=== PATIENT | female | born 1930 | race Caucasian/White ===

== ENCOUNTER 2016-06-27 | Outpatient (CLI) | payer MEDICARE, OTHER | END 2016-06-27 08:50 | disposition critical access hospital (66) | DX: R52 Pain, unspecified (principal) | CPT/HCPCS: A0425; A0429 ==

== ENCOUNTER 2016-06-27 09:09 | Emergency (ER) | payer MEDICARE, OTHER ==
[2016-06-27] MEDS ORDERED: ACETAMINOPHEN 325 MG TABLET PO STA (10:37)
[2016-06-27] MEDS ORDERED: ACETAMINOPHEN 325 MG TABLET PO ONE (10:52)
== END 2016-06-27 14:40 | disposition home or self-care (01) ==
DX: R52 Pain, unspecified (principal); R53.1 Weakness; J44.9 Chronic obstructive pulmonary disease, unspecified; J45.909 Unspecified asthma, uncomplicated; I11.0 Hypertensive heart disease with heart failure; I50.9 Heart failure, unspecified; F03.90 Unspecified dementia, unspecified severity, without behavioral disturbance, psychotic disturbance, mood disturbance, and anxiety; E11.9 Type 2 diabetes mellitus without complications; Z79.84 Long term (current) use of oral hypoglycemic drugs; Z79.82 Long term (current) use of aspirin
CPT/HCPCS: 36415; 71010; 80053; 83690; 83735; 85025; 99283; 99284; A9270

== ENCOUNTER 2017-01-21 15:50 | Outpatient (CLI) | payer MEDICARE, OTHER | END 2017-01-21 15:51 | disposition critical access hospital (66) | LOC: EMS 15:50 | PROVIDERS: ATTEND Surgery | DX: R53.1 Weakness (principal); R46.4 Slowness and poor responsiveness; R11.10 Vomiting, unspecified; R19.7 Diarrhea, unspecified | CPT/HCPCS: A0425; A0427 ==

== ENCOUNTER 2017-01-21 16:11 | Inpatient (IN) | payer MEDICARE, OTHER ==
--- NOTE | 2017-01-21 16:33 | ED Physician Documentation ---
PD HPI ALTERED MENTAL STATUS - Stated complaint Stated Complaint: WEAK - Chief complaint Chief Complaint: Neuro - History obtained from History obtained from: Family (Ada Ray by phone. Minimal history from pt d/t dementia and very PAUMA.) - History of Present Illness Timing - onset: Other (Missed meds last night. Doing okay this morning, in her normal state of health Which is very demented. She started vomiting and was incontinent of stool and complaining of weakness. 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 ANALYST: None : None HEENT: None Psych: None Musculoskeletal: None Derm: None - Present Medications Home Medications: Ambulatory Orders Medication Instructions Recorded Confirmed Alendronate [Fosamax] 70 mg PO ONCE 05/31/13 01/21/17 Aspirin [Aspir 81] 81 mg PO BID 05/31/13 01/21/17 Flaxseed Oil [Flax Seed Oil] 1,000 mg PO BID 05/31/13 01/21/17 Lisinopril 2.5 mg PO DAILY 05/31/13 01/21/17 Lovastatin [Altoprev] 20 mg PO DAILY 05/31/13 01/21/17 Sitagliptin Phosphate [Januvia] 50 mg PO DAILY 05/31/13 01/21/17 Vit D3/Folic Acid/B2/B6/B12 1 each PO DAILY 05/31/13 01/21/17 [Folgard Tablet] glipiZIDE ER [Glucotrol Xl] 2.5 mg PO 0800 05/31/13 01/21/17 Ascorbic Acid [Vitamin C] 500 mg PO DAILY 01/21/17 01/21/17 Metoprolol Succinate [Toprol Xl] 25 mg PO BID 01/21/17 01/21/17 Multivitamin [Multiple Vitamins] 1 each PO DAILY 01/21/17 01/21/17 Vitamin E (Dl,Tocopheryl Acet) 400 unit PO DAILY 01/21/17 01/21/17 [Vitamin E] - Allergies Allergies/Adverse Reactions: Allergies Allergy/AdvReac Type Severity Reaction Status Date / Time codeine Allergy Mild Anxiety Verified 05/31/13 13:39 shellfish derived Allergy Mild Anxiety Verified 05/31/13 13:39 - Living Situation Living Situation: reports: With family - Social History Does the pt smoke?: No Smoking Status: Never smoker Does the pt drink ETOH?: No Does the pt have substance abuse?: No - Immunizations Immunizations are current?: Yes - POLST Patient has POLST: No PD ED PE NORMAL - Vitals Vital signs reviewed: Yes - General General: Other (She is alert and cooperative, very hard of hearing and does not know the date or where she is.) - HEENT HEENT: PERRL, EOMI, Moist mucous membranes - Neck Neck: Supple, no meningeal sign, No bony TTP - Cardiac Cardiac: RRR, No murmur - Respiratory Respiratory: No respiratory distress, Clear bilaterally - Abdomen Abdomen: Normal bowel sounds, Soft, Other (Mild tenderness in the left lower quadrant) - Rectal Rectal: Other (Grossly blood per rectum) - Back Back: No CVA TTP, No spinal TTP - Derm Derm: Normal color, Warm and dry - Extremities Extremities: No edema, No calf tenderness / cord - Neuro Neuro: No motor deficit, No sensory deficit - Psych Psych: Normal mood, Normal affect Results - Vitals Vitals: Vital Signs - 24 hr 01/21/17 01/21/17 01/21/17 16:11 17:35 18:30 Temperature 35.6 C L Heart Rate 80 59 L 87 Respiratory 16 16 16 Rate Blood Pressure 105/46 L 131/47 H 116/74 O2 Saturation 97 97 95 01/21/17 01/21/17 19:37 19:48 Temperature 36.2 C L Heart Rate 89 84 Respiratory 16 16 Rate Blood Pressure 107/68 O2 Saturation 99 98 Oxygen O2 Source Room air - EKG (time done) 1737 Rate: Rate (enter#) (75) Rhythm: NSR (with PVCs) [place]: Normal Intervals: Normal MS Ischemia: Q waves (inferior). No: ST elevation c/w ischemia Computer interpretation: Agree with computer - Labs Labs: Laboratory Tests 01/21/17 01/21/17 01/21/17 16:46 16:53 16:53 WBC 24.8 H RBC 4.49 Hgb 12.9 Hct 39.6 MCV 88.2 MCH 28.8 MCHC 32.7 RDW 14.0 Plt Count 285 MPV 7.1 L Neut # 21.2 H Lymph # 1.9 [place] # 1.5 H Eos # 0.1 Baso # 0.1 Absolute Nucleated RBC 0.00 Nucleated RBCs 0.0 Manual Slide Review Indicated WBC Morphology NORMAL APPEARANCE Platelet Estimate NORMAL (130-450,000) Platelet Morphology NORMAL APPEARANCE RBC Morph Micro Appear 1+ OVALOCYTES PT 12.3 INR 1.1 Sodium Potassium Chloride Carbon Dioxide Anion Gap BUN Creatinine Estimated GFR (MDRD) Glucose Lactic Acid Calcium Total Bilirubin AST ALT Alkaline Phosphatase Total Creatine Kinase CK-MB (CK-2) Troponin I Total Protein Albumin Globulin Albumin/Globulin Ratio Lipase Urine Color YELLOW Urine Clarity HAZY Urine pH 7.5 Ur Specific [place] 1.010 Urine Protein 30 H Urine Glucose (UA) NEGATIVE Urine Ketones NEGATIVE Urine Occult Blood TRACE-LYSE Urine Nitrite NEGATIVE Urine Bilirubin NEGATIVE Urine Urobilinogen 0.2 (NORMAL) Ur Leukocyte Esterase SMALL H Urine RBC 0-5 Urine WBC >25 H Urine WBC Clumps PRESENT Ur Epithelial Cells See Comments Below Ur Squamous Epith Cells MOD Squamous H Urine Bacteria Many H Ur Microscopic Review INDICATED Urine Culture Comments NOT INDICATED Blood Type Blood Type Recheck Antibody Screen Crossmatch IS Only 01/21/17 01/21/17 01/21/17 16:53 16:53 16:53 WBC RBC Hgb Hct MCV MCH MCHC RDW Plt Count MPV Neut # Lymph # [place] # Eos # Baso # Absolute Nucleated RBC Nucleated RBCs Manual Slide Review WBC Morphology Platelet Estimate Platelet Morphology RBC Morph Micro Appear PT INR Sodium 129 L Potassium 3.4 L Chloride 95 L Carbon Dioxide 23 Anion Gap 11.0 BUN 18 Creatinine 0.9 Estimated GFR (MDRD) 60 L Glucose 201 H Lactic Acid 2.6 H Calcium 9.1 Total Bilirubin 0.9 AST 27 ALT 17 Alkaline Phosphatase 100 Total Creatine Kinase 67 CK-MB (CK-2) 1.7 Troponin I < 0.04 Total Protein 6.4 L Albumin 3.7 Globulin 2.7 Albumin/Globulin Ratio 1.4 Lipase 25 Urine Color Urine Clarity Urine pH Ur Specific [place] Urine Protein Urine Glucose (UA) Urine Ketones Urine Occult Blood Urine Nitrite Urine Bilirubin Urine Urobilinogen Ur Leukocyte Esterase Urine RBC Urine WBC Urine WBC Clumps Ur Epithelial Cells Ur Squamous Epith Cells Urine Bacteria Ur Microscopic Review Urine Culture Comments Blood Type Blood Type Recheck Antibody Screen Crossmatch IS Only 01/21/17 01/21/17 16:53 17:13 WBC RBC Hgb Hct MCV MCH MCHC RDW Plt Count MPV Neut # Lymph # [place] # Eos # Baso # Absolute Nucleated RBC Nucleated RBCs Manual Slide Review WBC Morphology Platelet Estimate Platelet Morphology RBC Morph Micro Appear PT INR Sodium Potassium Chloride Carbon Dioxide Anion Gap BUN Creatinine Estimated GFR (MDRD) Glucose Lactic Acid Calcium Total Bilirubin AST ALT Alkaline Phosphatase Total Creatine Kinase CK-MB (CK-2) Troponin I Total Protein Albumin Globulin Albumin/Globulin Ratio Lipase Urine Color Urine Clarity Urine pH Ur Specific [place] Urine Protein Urine Glucose (UA) Urine Ketones Urine Occult Blood Urine Nitrite Urine Bilirubin Urine Urobilinogen Ur Leukocyte Esterase Urine RBC Urine WBC Urine WBC Clumps Ur Epithelial Cells Ur Squamous Epith Cells Urine Bacteria Ur Microscopic Review Urine Culture Comments Blood Type A POSITIVE Blood Type Recheck A POSITIVE Antibody Screen NEGATIVE Crossmatch IS Only See Detail - Rads (name of study) CT A/P Radiology: EMP read contemporaneously (Diffuse descending colitis) PD MEDICAL DECISION MAKING - ED course ED course: This is a fairly demented edema 86-year-old woman who presents with left lower quadrant tenderness and lower GI bleeding. Her H&H is good but she does have a significant leukocytosis and evidence of UTI on catheterized sample. CT to my eye shows significant diverticulitis and she is administered Zosyn and Flagyl and I called the hospitalist for admission at 7:15 PM. Departure - Departure Disposition: 66 [facility] DC/Xfer Clinical Impression: Lower GI bleeding, Colitis Urinary tract infection Qualifiers: Urinary tract infection type: site unspecified Hematuria presence: without hematuria Qualified Code(s): N39.0 - Urinary tract infection, site not specified Condition: Serious
[2017-01-21] MEDS ORDERED: SODIUM CHLORIDE 0.9% 1,000 ML IV ONE (16:36)
[2017-01-21 17:07] LABS: BASOPHILS # (AUTO) 0.1 10^3/uL (0.0-0.1); BASOPHILS % (AUTO) 0.4 %; EOSINOPHILS # (AUTO) 0.1 10^3/uL (0.0-0.7); EOSINOPHILS % (AUTO) 0.3 %; HCT - HEMATOCRIT 39.6 % (37.0-47.0); HGB - HEMOGLOBIN 12.9 g/dL (12.0-16.0); LYMPHOCYTES # (AUTO) 1.9 10^3/uL (1.5-3.5); LYMPHOCYTES % (AUTO) 7.6 %; MEAN CORPUSCULAR HEMOGLOBIN 28.8 pg (27.0-31.0); MEAN CORPUSCULAR HGB CONC 32.7 g/dL (32.0-36.0); MEAN CORPUSCULAR VOLUME 88.2 fL (81.0-99.0); MEAN PLATELET VOLUME 7.1 fL (7.9-10.8); MONOCYTES # (AUTO) 1.5 10^3/uL (0.0-1.0); MONOCYTES % (AUTO) 6.2 %; NEUTROPHILS # (AUTO) 21.2 10^3/uL (1.5-6.6); NEUTROPHILS % (AUTO) 85.5 %; RED BLOOD COUNT 4.49 10^6/uL (4.20-5.40); UNCORRECTED WHITE BLOOD COUNT 24.8 x10^3/uL; WHITE BLOOD COUNT 24.8 x10^3/uL (4.8-10.8)
[2017-01-21 17:12] LABS: BILIRUBIN,URINE NEGATIVE (NEGATIVE); PH,URINE 7.5 PH (5.0-7.5)
[2017-01-21 17:13] LABS: UA w/ MICROSCOPIC CHARGE YES
[2017-01-21 17:17] LABS: ALBUMIN/GLOBULIN RATIO 1.4 (1.0-2.2); BILIRUBIN,TOTAL 0.9 mg/dL (0.2-1.0); CALCIUM 9.1 mg/dL (8.5-10.3); CREATININE 0.9 mg/dL (0.4-1.0); POTASSIUM 3.4 mmol/L (3.5-5.0); TOTAL PROTEIN 6.4 g/dL (6.7-8.2)
[2017-01-21 17:20] LABS: WBC,URINE >25 /HPF (0-5)
[2017-01-21 17:21] LABS: UR CULTURE IF IND NOT INDICATED
[2017-01-21 17:26] LABS: CREATINE KINASE MB 1.7 ng/mL (0.6-6.3)
[2017-01-21 17:28] LABS: INR 1.1 (0.8-1.2); PT - PROTHROMBIN TIME 12.3 secs (9.9-12.6)
[2017-01-21 17:31] LABS: TROPONIN I < 0.04 ng/mL (<0.49)
[2017-01-21] MEDS ORDERED: IOPAMIDOL-300 100 ML VIAL ONE (17:33)
[2017-01-21 18:11] LABS: PLATELET ESTIMATE, MANUAL NORMAL (130-450,000) (NORMAL); PLATELET MORPHOLOGY NORMAL APPEARANCE (NORMAL)
[2017-01-21 18:14] LABS: WBC MORPHOLOGY (MULTIPLE) NORMAL APPEARANCE (NORMAL)
[2017-01-21] MEDS ORDERED: IOPAMIDOL-300 100 ML VIAL IVP ONE (19:03)
[2017-01-21] MEDS ORDERED: PIPERACILLIN/TAZOBACTAM 3.375 GM in SODIUM CHLORIDE 0.9% MINIBAG 100 ML IV STA (19:14)
[2017-01-21] MEDS ORDERED: metroNIDAZOLE 500 MG/100 ML 100 ML IV ONE (19:14)
[2017-01-21] MEDS ORDERED: metroNIDAZOLE 500 MG/100 ML 100 ML ONE (19:26)
--- NOTE | 2017-01-21 19:42 | CT Preliminary Report ---
Exam: CT Abdomen/Pelvis W/ IMPRESSION: 1. No bowel obstruction. Fairly diffuse colonic thickening is present with mild pericolonic inflammat ory changes from the approximate mid transverse colon to the rectum, most consistent with a diffuse c olitis. No free air or abscess identified. [facility] SITE ID: [id number]
--- NOTE | 2017-01-21 19:44 | CT Report ---
EXAM: CT ABDOMEN AND PELVIS EXAM DATE: 01/21/2017 07:08 PM. CLINICAL HISTORY: IV only, LLQ tenderness, wait for labs. COMPARISONS: 05/31/2013. TECHNIQUE: Routine helical CT imaging was performed through the abdomen and pelvis. IV contrast: 100 mL Isovue 300. Enteric contrast: No. Reconstructions: Coronal and sagittal. In accordance with CT protocol optimization, one or more of the following dose reduction techniques w ere utilized for this exam: automated exposure control, adjustment of mA and/or KV based on patient s ize, or use of iterative reconstructive technique. FINDINGS: Lung Bases: Small amount of probable atelectasis and respiratory motion. Liver: Homogeneous without focal mass. Gallbladder/Bile Ducts: Unremarkable. Spleen: Unremarkable. Pancreas: Mild atrophic and a few small calcifications again noted. Adrenal Glands: Stable. Kidneys: Stable horseshoe appearance. A few small probable calcifications appear to remain present wi th some limitation in assessment secondary to contrast. Enhancement appears appropriate. No hydroneph rosis. Peritoneal Cavity/Bowel: No bowel obstruction. Inflammatory changes with thickening are present from the approximate mid transverse colon to the rectum. Colonic diverticula are also noted. No free air. No discrete collection. No bulky adenopathy. Pelvic Organs: Urinary bladder contains no calcifications within it and no definite thickening. Uteru s appears surgically absent. Vasculature: No aneurysmal dilation. Small amount of vascular calcification. Bones: Degenerative change of the hips and spine again noted. Other: None. IMPRESSION: 1. No bowel obstruction. Fairly diffuse colonic thickening is present with mild pericolonic inflammat ory changes from the approximate mid transverse colon to the rectum, most consistent with a diffuse c olitis. No free air or abscess identified. [facility] Referring Provider Line: [phone] SITE ID: [id number]
[2017-01-21] MEDS ORDERED: ACETAMINOPHEN 325 MG TABLET PO PRN (19:57)
[2017-01-21] MEDS ORDERED: oxyCODONE 5 MG TABLET PO PRN ×2 (19:57)
[2017-01-21] MEDS ORDERED: SODIUM CHLORIDE FLUSH 0.9% 10 ML SYRINGE IVP PRN (19:57)
[2017-01-21] MEDS ORDERED: PROCHLORPERAZINE 10 MG/2 ML VIAL IVP PRN (19:57)
[2017-01-21] MEDS ORDERED: MORPHINE 2 MG/ML SYRINGE IVP PRN (19:57)
[2017-01-21] MEDS ORDERED: ONDANSETRON 4 MG/2 ML VIAL IVP PRN (19:57)
[2017-01-21] MEDS: NS W/20 MEQ KCL 1,000 ML IV SCH (21:49)
[2017-01-21] MEDS: INSULIN ASPART 300 UNIT/3 ML PEN SUBQ SCH (21:49)
[2017-01-21] MEDS: SODIUM CHLORIDE FLUSH 0.9% 10 ML SYRINGE IVP SCH (21:50)
[2017-01-21] MEDS ORDERED: HALOPERIDOL 5 MG/ML VIAL IM PRN (21:59)
--- NOTE | 2017-01-21 22:37 | HISTORY & PHYSICAL EXAMINATION ---
Chief Complaint - Chief Complaint Chief Complaint: Low blood pressure History of Present Illness - Admitted From Admitted From:: Emergency department - History Obtained From Records Reviewed: Yes History obtained from: Patient's daughter and medical records Exam Limitations: Patient has dementia and is hard of hearing it is very difficult to get any - History of Present Illness HPI Comment/Other: Patient is an 86-year-old female with a past medical history significant for hypertension, hyperlipidemia, diabetes, CHF, osteoporosis, osteoarthritis and dementia who presents to the emergency department secondary to having a low blood pressure. The patient is unable to provide any history secondary to her dementia the history is provided by the patient's daughter. The patient's daughter states that for the last several days the patient has been increasingly agitated at home. However the patient has been eating and drinking normally until this evening. The patient's daughter states that the patient was with the caregiver this evening and the caregiver called the patient 's daughter because patient was vomiting. According to the patient's daughter the patient also looked very pale therefore they called 911. The caregiver also noted that the patient was clenching her abdomen and seemed to be in abdominal pain. When EMS arrived at the patient's home the patient was found to be hypotensive with a systolic blood pressure in the 60s. They then proceeded to bring the patient into the emergency department. The patient was not febrile or tachycardic at that time. The patient was unable to provide any further review of systems secondary to her dementia. The patient's daughter stated that she had not noticed the patient having any significant complaints over the last couple of days other than she noticed that the patient had been more agitated than normal the last few days. She also stated that the patient was not as active as normal. Otherwise the patient had not been having any fevers, complaining of any chest pain, shortness of air, or abdominal pain before today. The patient had also not had any increased urinary frequency or changes in her neurologic status. On presentation to the emergency department the patient was afebrile and blood pressure had improved and she was given fluid in the ambulance and it was up to 105/46 otherwise her vital signs were stable. The patient did have several bowel movements in the emergency department and they appear to be loose with bloody stools. The patient did appear to be favoring her left lower quadrant of her abdomen and it was tender on examination. The patient's lab work revealed a leukocytosis of 24.8 with a lactic acid of 2.6. The patient's labs also revealed a low sodium and low potassium consistent with dehydration. The patient's UA was positive with greater than 25 WBCs and many bacteria. The patient was sent for a CT scan of her abdomen and pelvis which revealed no bowel obstruction but fairly diffuse colonic thickening with mild pericolonic inflammatory changes from the mid transverse colon to the rectum which were consistent with diffuse colitis. The patient was admitted to the hospital with colitis and urinary tract infection. 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 She has required 24 7 supervision for the last couple of years. This is due to increasing dementia and decreased mobility as the patient is now mainly wheelchair-bound and requires assistance with transfer. The patient is originally from [facility] but her and her moved throughout the country as her was in the . She is now from her who lives in [place], [place]. The patient has been living in [facility] since the and currently lives in [place]. The patient did smoke for a couple years and her younger days but has not smoked for a long time and was never a heavy smoker. Patient also occasionally drank but never heavily and currently does not drink. She denies any illicit drug use. - Substance History Use: Uses substance without health or social issues: NONE Abuse: Recurrent use of substance despite neg consequences: NONE Dependence: Experiences withdrawal or developed tolerances: NONE - POLST Patient has POLST: Yes POLST Status: Limited Interventions (DNR) Meds/Allgy - Home Medications Home Medications: Ambulatory Orders Medication Instructions Recorded Confirmed Alendronate [Fosamax] 70 mg PO 05/31/13 05/31/13 Aspirin [Aspir 81] 81 mg PO BID 05/31/13 01/21/17 Lisinopril 2.5 mg PO DAILY 05/31/13 01/21/17 Lovastatin [Altoprev] 20 mg PO DAILY 05/31/13 01/21/17 Sitagliptin Phosphate [Januvia] 50 mg PO DAILY 05/31/13 01/21/17 Vit D3/Folic Acid/B2/B6/B12 1 each PO DAILY 05/31/13 01/21/17 [Folgard Tablet] glipiZIDE ER [Glucotrol Xl] 2.5 mg PO 1200 05/31/13 01/21/17 Ascorbic Acid [Vitamin C] 500 mg PO DAILY 01/21/17 01/21/17 Metoprolol Succinate [Toprol Xl] 25 mg PO BID 01/21/17 01/21/17 Vitamin E (Dl,Tocopheryl Acet) 400 unit PO DAILY 01/21/17 01/21/17 [Vitamin E] - Allergies Allergies/Adverse Reactions: Allergies Allergy/AdvReac Type Severity Reaction Status Date / Time codeine Allergy Mild Anxiety Verified 05/31/13 13:39 shellfish derived Allergy Mild Anxiety Verified 05/31/13 13:39 Review of Systems - Other Findings Other Findings: Unable to obtain a reliable review of systems secondary to patient's dementia attempt was made to get history from the patient's daughter and that is all stated above in the HPI. Exam - Vital Signs Reviewed Vital Signs: Yes Vital Signs: Vital Signs x48h Pulse Resp BP Pulse Ox 01/21/17 20:37 90 16 107/79 98 - Physical Exam General Appearance: positive: Mild distress (agitated, abdominal discomfort), Other (Hard of hearing with dementia) Eyes Bilateral: positive: Normal inspection, PERRL, EOMI, No lid inflammation, Conjunctivae nml, No scleral icterus ENT: positive: ENT inspection nml, Pharynx nml, Dry mucous membranes. negative : Purulent nasal drainage, Pharyngeal erythema, Oral lesions Neck: positive: Nml inspection, Thyroid nml, No JVD. negative: Trachea midline , Thyromegaly, Lymphadenopathy (R), Lymphadenopathy (L), Stiff neck, Carotid bruit, Tracheal deviation Respiratory: positive: Chest non-tender, No respiratory distress, Breath sounds nml. negative: Wheezes, Rales, Rhonchi Cardiovascular: positive: Regular rate & rhythm, No murmur, No gallop Peripheral Pulses: positive: 2+ Abdomen: positive: No organomegaly, No distention, Tenderness (Diffusely tender but worse in the left lower quadrant), Guarding, Abnml bowel sounds (Hyperactive ). negative: Rebound, Hepatomegaly Back: positive: Nml inspection. negative: CVA tenderness (R), CVA tenderness (L ) Skin: positive: Color nml, No rash, Pallor. negative: Cyanosis Extremities: positive: Non-tender, Full ROM, Nml appearance, No pedal edema. negative: Joint swelling Neurologic/Psychiatric: positive: Motor nml, Sensation nml, Disoriented to place , Disoriented to time, Other (Hard of hearing and demented, poor memory, does not know why she is here) Conclusion/Plan - Problem List (1) Colitis Conclusion/Plan: Patient presented with hypotension, abdominal pain and agitation. She is found to have a leukocytosis of 24,000 on presentation. She also had an elevated lactic acid and her abdominal CT showed diffuse colitis from the transverse colon down to the rectum. The patient had several bloody bowel movements in the emergency department but did not appear to have severe abdominal pain. She was quite tender on examination. Patient likely has an infectious colitis given her leukocytosis, tenderness on exam and bloody diarrhea. It is very unlikely that the patient has ischemic colitis although given her age and risk factors this is a possibility. However the patient does not appear to have pain out of proportion to her examination. This is very unlikely to be a inflammatory bowel disease given the patient's age. Plan: We will start the patient on IV antibiotics with ciprofloxacin and Flagyl We will check patient's stool cultures and will check for C. difficile PCR Patient will be given IV fluids We will monitor her H&H given that she is having some blood in her stool Patient will be given medication for pain control and antiemetics. (2) Urinary tract infection Conclusion/Plan: The patient presented with hypotension, leukocytosis and agitation at home. The patient was found to have a UA with her than 25 WBCs positive leukocyte esterase and many bacteria however there was also squamous cells so this may not be the best sample. Plan: The patient will be treated for urinary tract infection given her presentation therefore she will be placed on IV ciprofloxacin. We will repeat a urine analysis to ensure that the patient truly has a UTI and so that the urine can be sent for culture. We will follow up on urine cultures Qualifiers: Urinary tract infection type: site unspecified Hematuria presence: without hematuria Qualified Code(s): N39.0 - Urinary tract infection, site not specified (3) Hyponatremia Conclusion/Plan: Patient presented with hyponatremia the patient's sodium was 129 on presentation. The patient appeared to be hypovolemic and likely has hypovolemic hyponatremia secondary to dehydration from her infection. Plan: Patient will be given IV fluids We will monitor her sodium (4) Hypokalemia Conclusion/Plan: The patient's potassium was 3.4 on presentation this is likely secondary to the patient having vomiting at home and being dehydrated from her infection. We will replace the patient's potassium We will continue to monitor potassium. (5) Hypertension Conclusion/Plan: The patient was hypotensive on presentation and was borderline septic with her colitis. We will hold the patient's antihypertensive medications until patient's blood pressure is improved. Patient will be given IV fluids Qualifiers: Hypertension type: essential hypertension Qualified Code(s): I10 - Essential (primary) hypertension (6) Diabetes Conclusion/Plan: Patient has a history of type 2 diabetes and is on oral medications at home. The patient's blood sugar on presentation was elevated at 201. Patient's blood sugars are likely elevated secondary to ongoing infection. Plan: We will check hemoglobin A1c Patient will be placed on diabetic diet Patient will be placed on sliding scale insulin We will monitor patient's blood glucose before meals at bedtime Qualifiers: Diabetes mellitus type: type 2 (7) CHF (congestive heart failure) Conclusion/Plan: Patient has CHF listed in her diagnoses and is on optimal treatment at home with metoprolol and lisinopril. I would assume the patient has systolic heart failure although we do not have an echocardiogram. Plan: We will need to be careful with hydration although given the patient was hypotensive on presentation and is having diarrhea with colitis we will likely need to continue hydration. Patient's lisinopril and metoprolol will be held for hypotension. We will get an echocardiogram to evaluate the patient's heart function to better guide our treatment. (8) DVT prophylaxis Conclusion/Plan: Given that the patient is having bloody stools we will hold off on giving patient Lovenox for DVT prophylaxis if for the time being she will placed on SCDs - Lab Results Lab results reviewed: Yes Fish Bones: 01/21/17 16:53 01/21/17 16:53 Other Lab Results: Laboratory Results WBC 24.8 x10^3/uL (4.8-10.8) H 01/21/17 16:53 RBC 4.49 10^6/uL (4.20-5.40) 01/21/17 16:53 Hgb 12.9 g/dL (12.0-16.0) 01/21/17 16:53 Hct 39.6 % (37.0-47.0) 01/21/17 16:53 MCV 88.2 fL (81.0-99.0) 01/21/17 16:53 MCH 28.8 pg (27.0-31.0) 01/21/17 16:53 MCHC 32.7 g/dL (32.0-36.0) 01/21/17 16:53 RDW 14.0 % (12.0-15.0) 01/21/17 16:53 Plt Count 285 10^3/uL (130-450) 01/21/17 16:53 MPV 7.1 fL (7.9-10.8) L 01/21/17 16:53 Neut # 21.2 10^3/uL (1.5-6.6) H 01/21/17 16:53 Lymph # 1.9 10^3/uL (1.5-3.5) 01/21/17 16:53 Andrews # 1.5 10^3/uL (0.0-1.0) H 01/21/17 16:53 Eos # 0.1 10^3/uL (0.0-0.7) 01/21/17 16:53 Baso # 0.1 10^3/uL (0.0-0.1) 01/21/17 16:53 Absolute Nucleated RBC 0.00 x10^3/uL 01/21/17 16:53 Nucleated RBCs 0.0 /100WBC 01/21/17 16:53 Manual Slide Review Indicated 01/21/17 16:53 WBC Morphology NORMAL APPEARANCE (NORMAL) 01/21/17 16:53 Platelet Estimate NORMAL (130-450,000) (NORMAL) 01/21/17 16:53 Platelet Morphology NORMAL APPEARANCE (NORMAL) 01/21/17 16:53 RBC Morph Micro Appear 2+ ANISOCYTOSIS (NORMAL) 2+ POIKILOCYTOSIS (NORMAL) 2 + ACANTHOCYTES (NORMAL) 1+ OVALOCYTES (NORMAL) 01/21/17 16:53 RBC Morph Micro Appear 2+ ANISOCYTOSIS (NORMAL) 2+ POIKILOCYTOSIS (NORMAL) 2 + ACANTHOCYTES (NORMAL) 1+ OVALOCYTES (NORMAL) 01/21/17 16:53 RBC Morph Micro Appear 2+ ANISOCYTOSIS (NORMAL) 2+ POIKILOCYTOSIS (NORMAL) 2 + ACANTHOCYTES (NORMAL) 1+ OVALOCYTES (NORMAL) 01/21/17 16:53 RBC Morph Micro Appear 2+ ANISOCYTOSIS (NORMAL) 2+ POIKILOCYTOSIS (NORMAL) 2 + ACANTHOCYTES (NORMAL) 1+ OVALOCYTES (NORMAL) 01/21/17 16:53 PT 12.3 secs (9.9-12.6) 01/21/17 16:53 INR 1.1 (0.8-1.2) 01/21/17 16:53 Sodium 129 mmol/L (135-145) L 01/21/17 16:53 Potassium 3.4 mmol/L (3.5-5.0) L 01/21/17 16:53 Chloride 95 mmol/L (101-111) L 01/21/17 16:53 Carbon Dioxide 23 mmol/L (21-32) 01/21/17 16:53 Anion Gap 11.0 (6-13) 01/21/17 16:53 BUN 18 mg/dL (6-20) 01/21/17 16:53 Creatinine 0.9 mg/dL (0.4-1.0) 01/21/17 16:53 Estimated GFR (MDRD) 60 (>89) L 01/21/17 16:53 Glucose 201 mg/dL (70-100) H 01/21/17 16:53 Lactic Acid 2.6 mmol/L (0.5-2.2) H 01/21/17 16:53 Calcium 9.1 mg/dL (8.5-10.3) 01/21/17 16:53 Total Bilirubin 0.9 mg/dL (0.2-1.0) 01/21/17 16:53 AST 27 IU/L (10-42) 01/21/17 16:53 ALT 17 IU/L (10-60) 01/21/17 16:53 Alkaline Phosphatase 100 IU/L (42-121) 01/21/17 16:53 Total Creatine Kinase 67 IU/L (22-269) 01/21/17 16:53 CK-MB (CK-2) 1.7 ng/mL (0.6-6.3) 01/21/17 16:53 Troponin I < 0.04 ng/mL (<0.49) 01/21/17 16:53 Total Protein 6.4 g/dL (6.7-8.2) L 01/21/17 16:53 Albumin 3.7 g/dL (3.2-5.5) 01/21/17 16:53 Globulin 2.7 g/dL (2.1-4.2) 01/21/17 16:53 Albumin/Globulin Ratio 1.4 (1.0-2.2) 01/21/17 16:53 Lipase 25 U/L (22-51) 01/21/17 16:53 Urine Color YELLOW 01/21/17 16:46 Urine Clarity HAZY (CLEAR) 01/21/17 16:46 Urine pH 7.5 PH (5.0-7.5) 01/21/17 16:46 Ur Specific [place] 1.010 (1.002-1.030) 01/21/17 16:46 Urine Protein 30 mg/dL (NEGATIVE) H 01/21/17 16:46 Urine Glucose (UA) NEGATIVE mg/dL (NEGATIVE) 01/21/17 16:46 Urine Ketones NEGATIVE mg/dL (NEGATIVE) 01/21/17 16:46 Urine Occult Blood TRACE-LYSE (NEGATIVE) 01/21/17 16:46 Urine Nitrite NEGATIVE (NEGATIVE) 01/21/17 16:46 Urine Bilirubin NEGATIVE (NEGATIVE) 01/21/17 16:46 Urine Urobilinogen 0.2 (NORMAL) E.U./dL (NORMAL) 01/21/17 16:46 Ur Leukocyte Esterase SMALL (NEGATIVE) H 01/21/17 16:46 Urine RBC 0-5 /HPF (0-5) 01/21/17 16:46 Urine WBC >25 /HPF (0-5) H 01/21/17 16:46 Urine WBC Clumps PRESENT 01/21/17 16:46 Ur Epithelial Cells FEW Transitional /HPF (<= Few) See Comments Below /HPF (<= Few) 01/21/17 16:46 Ur Epithelial Cells FEW Transitional /HPF (<= Few) See Comments Below /HPF (<= Few) 01/21/17 16:46 Ur Squamous Epith Cells MOD Squamous (<= Few) H 01/21/17 16:46 Urine Bacteria Many /HPF (None Seen) H 01/21/17 16:46 Ur Microscopic Review INDICATED 01/21/17 16:46 Urine Culture Comments NOT INDICATED 01/21/17 16:46 Blood Type A POSITIVE 01/21/17 17:13 Blood Type Recheck A POSITIVE 01/21/17 16:53 Antibody Screen NEGATIVE 01/21/17 17:13 Crossmatch IS Only See Detail 01/21/17 17:13 - Diagnostic Imaging Results Diagnostic Imaging Results: positive: Final report reviewed Diagnostic Imaging Results Comments: CT abdomen/pelvis Impression: 1. No bowel obstruction. Fairly diffuse colonic thickening is present with mild pericolonic inflammatory changes from the approximate mid transverse colon to the rectum, most consistent with a diffuse colitis. No free air or abscess identified. Issues/Core Measures - Anticipated LOS Anticipated Stay Length: 2 or more midnights - DVT/VTE - Prophylaxis VTE/DVT Device ordered at admit?: Yes
[2017-01-21] MEDS: CIPROFLOXACIN 400 MG/200 ML 200 ML IV SCH (22:50)
[2017-01-21] MEDS ORDERED: ZINC OXIDE 20% OINT 28.35 GM TUBE TOP PRN (23:36)
[2017-01-22] MEDS: metroNIDAZOLE 500 MG/100 ML 100 ML IV SCH ×3 (02:30→14:21)
[2017-01-22] MEDS: SODIUM CHLORIDE FLUSH 0.9% 10 ML SYRINGE IVP SCH ×2 (05:53→14:21)
[2017-01-22] MEDS: NS W/20 MEQ KCL 1,000 ML IV SCH ×3 (05:58→22:54)
[2017-01-22 06:44] LABS: BASOPHILS % (AUTO) 0.1 %; HCT - HEMATOCRIT 38.7 % (37.0-47.0); HGB - HEMOGLOBIN 13.1 g/dL (12.0-16.0); LYMPHOCYTES # (AUTO) 0.4 10^3/uL (1.5-3.5); LYMPHOCYTES % (AUTO) 2.1 %; MEAN CORPUSCULAR HEMOGLOBIN 29.9 pg (27.0-31.0); MEAN CORPUSCULAR HGB CONC 33.7 g/dL (32.0-36.0); MEAN CORPUSCULAR VOLUME 88.8 fL (81.0-99.0); MEAN PLATELET VOLUME 7.3 fL (7.9-10.8); MONOCYTES # (AUTO) 0.9 10^3/uL (0.0-1.0); MONOCYTES % (AUTO) 5.4 %; NEUTROPHILS # (AUTO) 15.7 10^3/uL (1.5-6.6); NEUTROPHILS % (AUTO) 92.4 %; RED BLOOD COUNT 4.36 10^6/uL (4.20-5.40); RED CELL DISTRIBUTION WIDTH 14.2 % (12.0-15.0)
[2017-01-22 06:58] LABS: ALBUMIN/GLOBULIN RATIO 1.1 (1.0-2.2); BILIRUBIN,TOTAL 0.6 mg/dL (0.2-1.0); CALCIUM 8.2 mg/dL (8.5-10.3); MAGNESIUM 1.2 mg/dL (1.7-2.8); PHOSPHORUS 3.3 mg/dL (2.5-4.6); POTASSIUM 4.2 mmol/L (3.5-5.0); TOTAL PROTEIN 5.6 g/dL (6.7-8.2)
[2017-01-22] MEDS: CIPROFLOXACIN 400 MG/200 ML 200 ML IV SCH (07:53)
[2017-01-22 07:58] LABS: INR 1.1 (0.8-1.2); PT - PROTHROMBIN TIME 12.8 secs (9.9-12.6)
[2017-01-22] MEDS: INSULIN ASPART 300 UNIT/3 ML PEN SUBQ SCH ×3 (07:58→16:39)
[2017-01-22 08:21] LABS: HEMOGLOBIN A1C 0.51 g/dL
[2017-01-22] MEDS ORDERED: MAGNESIUM SULFATE 2 GM in SODIUM CHLORIDE 0.9% 50 ML IV ONE (08:47)
[2017-01-22] MEDS ORDERED: LOVASTATIN 20 MG PO SCH (09:00)
[2017-01-22] MEDS: FAMOTIDINE 20 MG TABLET PO SCH (09:09)
[2017-01-22] MEDS: MULTIVITAMIN TABLET PO SCH (09:10)
[2017-01-22] MEDS: POLYETHYLENE GLYCOL 3350 17 GM PACKET PO SCH (09:10)
[2017-01-22] MEDS ORDERED: MAGNESIUM SULFATE 2 GRAM 2 GM/50 ML BAG IV ONE (10:00)
--- NOTE | 2017-01-22 13:49 | PROVIDER PROGRESS NOTE ---
Subjective - Prog Note Date Prog Note Date: 01/22/17 - Subjective Pt reports feeling: No change Subjective: pt is still confused, at her baseline per nurse report Current Medications - Current Medications Current Medications: Active Medications Acetaminophen (Tylenol) 650 mg PO Q4HR PRN PRN Reason: Pain 1 to 4 Atorvastatin Calcium (Lipitor) 10 mg PO QPM [facility] Famotidine (Pepcid) 20 mg PO DAILY [facility] Last Admin: 01/22/17 09:09 Dose: Not Given Haloperidol (Haldol Inj) 2.5 mg IM Q8H PRN PRN Reason: Agitation Potassium Chloride/Sodium Chloride (Normal Saline 0.9% W/20 Meq Kcl) 1,000 mls @ 100 mls/hr IV .Q10H [facility] Last Admin: 01/22/17 12:03 Dose: 100 mls/hr Ciprofloxacin (Cipro 400 Mg/200 Ml) 200 mls @ 200 mls/hr IV Q12H [facility] Last Admin: 01/22/17 07:53 Dose: 200 mls/hr Metronidazole (Flagyl 500 Mg/100 Ml) 100 mls @ 100 mls/hr IV Q6H [facility] Last Infusion: 01/22/17 15:19 Dose: Infused Insulin Aspart (Novolog) 1 - 5 unit SUBQ 0800,1200,1700,2100 [facility] PRN Reason: Protocol Last Admin: 01/22/17 16:39 Dose: 2 unit Morphine Sulfate (Morphine) 2 mg IVP Q2H PRN PRN Reason: Pain 8 to 10 Multi-Ingredient Ointment (Zinc Oxide) 0 applic TOP PRN PRN PRN Reason: Skin Care Multivitamins (Theragran) 1 tab PO DAILY [facility] Last Admin: 01/22/17 09:10 Dose: Not Given Ondansetron HCl (Zofran Inj) 4 mg IVP Q6HR PRN PRN Reason: Nausea / Vomiting Oxycodone HCl (Roxicodone) 5 mg PO Q4HR PRN PRN Reason: Pain 5 to 7 Oxycodone HCl (Roxicodone) 10 mg PO Q4HR PRN PRN Reason: Pain 8 to 10 Polyethylene Glycol (Miralax) 17 gm PO DAILY [facility] Last Admin: 01/22/17 09:10 Dose: Not Given Prochlorperazine Edisylate (Compazine Inj) 10 mg IVP Q6HR PRN PRN Reason: Nausea / Vomiting Sodium Chloride (Normal Saline Flush 0.9%) 10 ml IVP PRN PRN PRN Reason: NEEDED PER PROVIDER ORDERS Sodium Chloride (Normal Saline Flush 0.9%) 10 ml IVP Q8HR [facility] Last Admin: 01/22/17 14:21 Dose: Not Given Alendronate [Fosamax] 70 mg PO UD 05/31/13 Aspirin [Aspir 81] 81 mg PO BID 05/31/13 Lisinopril 2.5 mg PO DAILY 05/31/13 Lovastatin [Altoprev] 20 mg PO DAILY 05/31/13 Sitagliptin Phosphate [Januvia] 50 mg PO DAILY 05/31/13 Vit D3/Folic Acid/B2/B6/B12 [Folgard Tablet] 1 each PO DAILY 05/31/13 glipiZIDE ER [Glucotrol Xl] 2.5 mg PO 1200 05/31/13 Ascorbic Acid [Vitamin C] 500 mg PO DAILY 01/21/17 Metoprolol Succinate [Toprol Xl] 25 mg PO BID 01/21/17 Vitamin E (Dl,Tocopheryl Acet) [Vitamin E] 400 unit PO DAILY 01/21/17 Objective - Vital Signs/Intake & Output Reviewed Vital Signs: Yes Vital Signs: Vital Signs x48h Temp Pulse Resp BP Pulse Ox 01/22/17 07:45 37.5 C 86 18 120/49 L 96 01/22/17 06:34 37.0 C 82 16 124/47 L 96 Intake & Output: Intake & Output 01/19/17 01/20/17 01/21/17 01/22/17 23:59 23:59 23:59 23:59 Intake Total 50 Output Total 326 Balance 50 -326 - Objective General Appearance: positive: No acute distress, Alert. negative: Lethargic Eyes Bilateral: positive: PERRL, EOMI, No lid inflammation, Conjunctivae nml ENT: positive: ENT inspection nml, Pharynx nml, No signs of dehydration. negative: Purulent nasal drainage, Pharyngeal erythema, Oral lesions Neck: positive: Nml inspection, Thyroid nml, Trachea midline. negative: Thyromegaly, Lymphadenopathy (R), Lymphadenopathy (L), Stiff neck, Tracheal deviation Respiratory: positive: Chest non-tender, No respiratory distress, Breath sounds nml. negative: Wheezes, Rales, Rhonchi Cardiovascular: positive: Regular rate & rhythm, No murmur, No gallop. negative : Tachycardia, Bradycardia Peripheral Pulses: 2+ Radial (R), 2+ Radial (L), 2+ Dorsalis pedis (R), 2+ Dorsalis pedis (L) Abdomen: positive: Non-tender, Nml bowel sounds, No distention. negative: Tenderness, Guarding, Rebound Back: positive: Nml inspection. negative: CVA tenderness (R), CVA tenderness (L ) Skin: positive: Color nml, No rash, Warm, Dry. negative: Cyanosis, Diaphoresis , Pallor Extremities: positive: Non-tender, Full ROM, Nml appearance. negative: Calf tenderness, Jagruti's sign/cords Neurologic/Psychiatric: positive: Sensation nml. negative: Weakness, Facial droop, Slurred/abnml speech - Lab Results Fish Bones: 01/22/17 06:30 01/22/17 06:30 Other Labs: Lab Results x24hrs 01/22/17 01/22/17 01/22/17 Range/Units 07:42 06:32 06:30 WBC (4.8-10.8) x10^3/uL RBC (4.20-5.40) 10^6/uL Hgb (12.0-16.0) g/dL Hct (37.0-47.0) % MCV (81.0-99.0) fL MCH (27.0-31.0) pg MCHC (32.0-36.0) g/dL RDW (12.0-15.0) % Plt Count (130-450) 10^3/uL MPV (7.9-10.8) fL Neut # (1.5-6.6) 10^3/uL Lymph # (1.5-3.5) 10^3/uL [place] # (0.0-1.0) 10^3/uL Eos # (0.0-0.7) 10^3/uL Baso # (0.0-0.1) 10^3/uL Absolute Nucleated RBC x10^3/uL Nucleated RBC % /100WBC PT 12.8 H (9.9-12.6) secs INR 1.1 (0.8-1.2) Sodium (135-145) mmol/L Potassium (3.5-5.0) mmol/L Chloride (101-111) mmol/L Carbon Dioxide (21-32) mmol/L Anion Gap (6-13) BUN (6-20) mg/dL Creatinine (0.4-1.0) mg/dL Estimated GFR (MDRD) (>89) Glucose (70-100) mg/dL Glycated Hemoglobin 5.6 (4.6-6.2) % Estim Average Glucose 114 H (70-100) Lactic Acid 2.4 H (0.5-2.2) mmol/L Calcium (8.5-10.3) mg/dL Phosphorus (2.5-4.6) mg/dL Magnesium (1.7-2.8) mg/dL Total Bilirubin (0.2-1.0) mg/dL AST (10-42) IU/L ALT (10-60) IU/L Alkaline Phosphatase (42-121) IU/L Total Protein (6.7-8.2) g/dL Albumin (3.2-5.5) g/dL Globulin (2.1-4.2) g/dL Albumin/Globulin Ratio (1.0-2.2) Stool Leukocytes, Qual (Negative) 01/22/17 01/22/17 01/21/17 Range/Units 06:30 06:30 22:05 WBC 17.0 H (4.8-10.8) x10^3/uL RBC 4.36 (4.20-5.40) 10^6/uL Hgb 13.1 (12.0-16.0) g/dL Hct 38.7 (37.0-47.0) % MCV 88.8 (81.0-99.0) fL MCH 29.9 (27.0-31.0) pg MCHC 33.7 (32.0-36.0) g/dL RDW 14.2 (12.0-15.0) % Plt Count 231 (130-450) 10^3/uL MPV 7.3 L (7.9-10.8) fL Neut # 15.7 H (1.5-6.6) 10^3/uL Lymph # 0.4 L (1.5-3.5) 10^3/uL [place] # 0.9 (0.0-1.0) 10^3/uL Eos # 0.0 (0.0-0.7) 10^3/uL Baso # 0.0 (0.0-0.1) 10^3/uL Absolute Nucleated RBC 0.01 x10^3/uL Nucleated RBC % 0.0 /100WBC PT (9.9-12.6) secs INR (0.8-1.2) Sodium 131 L (135-145) mmol/L Potassium 4.2 (3.5-5.0) mmol/L Chloride 102 (101-111) mmol/L Carbon Dioxide 19 L (21-32) mmol/L Anion Gap 10.0 (6-13) BUN 19 (6-20) mg/dL Creatinine 1.0 (0.4-1.0) mg/dL Estimated GFR (MDRD) 53 L (>89) Glucose 305 H (70-100) mg/dL Glycated Hemoglobin (4.6-6.2) % Estim Average Glucose (70-100) Lactic Acid (0.5-2.2) mmol/L Calcium 8.2 L (8.5-10.3) mg/dL Phosphorus 3.3 (2.5-4.6) mg/dL Magnesium 1.2 L (1.7-2.8) mg/dL Total Bilirubin 0.6 (0.2-1.0) mg/dL AST 26 (10-42) IU/L ALT 16 (10-60) IU/L Alkaline Phosphatase 87 (42-121) IU/L Total Protein 5.6 L (6.7-8.2) g/dL Albumin 2.9 L (3.2-5.5) g/dL Globulin 2.7 (2.1-4.2) g/dL Albumin/Globulin Ratio 1.1 (1.0-2.2) Stool Leukocytes, Qual POSITIVE (Negative) Assessment/Plan - Problem List (1) Colitis Impression: (1) Colitis continue ciprofloxacin and Flagyl follow up patient's stool cultures C. difficile PCR negative continue IV fluids pt's HGB increase slight order occult blood stool test (2) Urinary tract infection Conclusion/Plan: continue IV ciprofloxacin. follow up on urine cultures Qualifiers: Urinary tract infection type: site unspecified Hematuria presence: without hematuria Qualified Code(s): N39.0 - Urinary tract infection, site not specified (3) Hyponatremia Conclusion/Plan: Patient will be given IV fluids We will monitor her sodium daily (4) Hypokalemia resolved (5) Hypertension stable, but slight lower BP, hold home BP meds, closely monitor tele and vital (6) Diabetes Conclusion/Plan: diabetic diet continue sliding scale for insulin as needed (7) CHF (congestive heart failure) Patient's lisinopril and metoprolol will be held for hypotension. follow up echocardiogram to evaluate the patient's heart function to better guide our treatment. slight hydration (8) confusion most likely it is pt's baseline, per nurse from pt's family report neuro check, may do CT of head if worsening
[2017-01-23] MEDS: ATORVASTATIN 10 MG TABLET PO SCH ×2 (01:42→19:55)
[2017-01-23] MEDS: metroNIDAZOLE 500 MG/100 ML 100 ML IV SCH ×5 (01:43→19:55)
[2017-01-23] MEDS: CIPROFLOXACIN 400 MG/200 ML 200 ML IV SCH ×2 (01:44→07:51)
[2017-01-23] MEDS: INSULIN ASPART 300 UNIT/3 ML PEN SUBQ SCH ×5 (01:45→20:46)
[2017-01-23] MEDS: SODIUM CHLORIDE FLUSH 0.9% 10 ML SYRINGE IVP SCH ×4 (01:45→20:00)
[2017-01-23 05:57] LABS: BASOPHILS % (AUTO) 0.3 %; HCT - HEMATOCRIT 33.9 % (37.0-47.0); HGB - HEMOGLOBIN 11.4 g/dL (12.0-16.0); LYMPHOCYTES % (AUTO) 6.9 %; MEAN CORPUSCULAR HEMOGLOBIN 29.8 pg (27.0-31.0); MEAN CORPUSCULAR HGB CONC 33.6 g/dL (32.0-36.0); MEAN CORPUSCULAR VOLUME 88.8 fL (81.0-99.0); MEAN PLATELET VOLUME 7.5 fL (7.9-10.8); MONOCYTES # (AUTO) 0.8 10^3/uL (0.0-1.0); MONOCYTES % (AUTO) 5.7 %; NEUTROPHILS % (AUTO) 87.1 %; RED BLOOD COUNT 3.81 10^6/uL (4.20-5.40); RED CELL DISTRIBUTION WIDTH 14.6 % (12.0-15.0)
[2017-01-23 06:12] LABS: ALBUMIN/GLOBULIN RATIO 1.1 (1.0-2.2); BILIRUBIN,TOTAL 0.7 mg/dL (0.2-1.0); CALCIUM 8.5 mg/dL (8.5-10.3); CREATININE 1.1 mg/dL (0.4-1.0); TOTAL PROTEIN 5.1 g/dL (6.7-8.2)
[2017-01-23] MEDS: SODIUM CHLORIDE 0.9% 1,000 ML IV SCH ×2 (07:54→17:54)
[2017-01-23] MEDS: FAMOTIDINE 20 MG TABLET PO SCH (08:47)
[2017-01-23] MEDS: MULTIVITAMIN TABLET PO SCH (08:49)
[2017-01-23] MEDS: POLYETHYLENE GLYCOL 3350 17 GM PACKET PO SCH (08:50)
[2017-01-23] MEDS ORDERED: SODIUM CHLORIDE FLUSH 0.9% 10 ML SYRINGE IVP ONE (09:33)
[2017-01-23] MEDS ORDERED: cefTRIAXone 1 GM VIAL IVP SCH (11:00)
--- NOTE | 2017-01-23 11:50 | PROVIDER PROGRESS NOTE ---
Subjective - Prog Note Date Prog Note Date: 01/23/17 - Subjective Pt reports feeling: Improved Subjective: pt is still confused but better than yesterday. pt also is very hard hearing. Current Medications - Current Medications Current Medications: Active Medications Acetaminophen (Tylenol) 650 mg PO Q4HR PRN PRN Reason: Pain 1 to 4 Atorvastatin Calcium (Lipitor) 10 mg PO QPM [facility] Last Admin: 01/23/17 01:42 Dose: 10 mg Famotidine (Pepcid) 20 mg PO DAILY [facility] Last Admin: 01/23/17 08:47 Dose: 20 mg Haloperidol (Haldol Inj) 2.5 mg IM Q8H PRN PRN Reason: Agitation Metronidazole (Flagyl 500 Mg/100 Ml) 100 mls @ 100 mls/hr IV Q6H [facility] Last Infusion: 01/23/17 10:10 Dose: Infused Sodium Chloride (Normal Saline 0.9%) 1,000 mls @ 100 mls/hr IV .Q10H [facility] Last Admin: 01/23/17 07:54 Dose: 100 mls/hr Ceftriaxone Sodium 1 gm/ (Sodium Chloride) 100 mls @ 100 mls/hr IV DAILY [facility] Insulin Aspart (Novolog) 1 - 5 unit SUBQ 0800,1200,1700,2100 [facility] PRN Reason: Protocol Last Admin: 01/23/17 08:04 Dose: 1 unit Morphine Sulfate (Morphine) 2 mg IVP Q2H PRN PRN Reason: Pain 8 to 10 Multi-Ingredient Ointment (Zinc Oxide) 0 applic TOP PRN PRN PRN Reason: Skin Care Multivitamins (Theragran) 1 tab PO DAILY [facility] Last Admin: 01/23/17 08:49 Dose: 1 tab Ondansetron HCl (Zofran Inj) 4 mg IVP Q6HR PRN PRN Reason: Nausea / Vomiting Oxycodone HCl (Roxicodone) 5 mg PO Q4HR PRN PRN Reason: Pain 5 to 7 Oxycodone HCl (Roxicodone) 10 mg PO Q4HR PRN PRN Reason: Pain 8 to 10 Polyethylene Glycol (Miralax) 17 gm PO DAILY [facility] Last Admin: 01/23/17 08:50 Dose: Not Given Prochlorperazine Edisylate (Compazine Inj) 10 mg IVP Q6HR PRN PRN Reason: Nausea / Vomiting Sodium Chloride (Normal Saline Flush 0.9%) 10 ml IVP PRN PRN PRN Reason: NEEDED PER PROVIDER ORDERS Sodium Chloride (Normal Saline Flush 0.9%) 10 ml IVP Q8HR [facility] Last Admin: 01/23/17 06:31 Dose: 10 ml Alendronate [Fosamax] 70 mg PO UD 05/31/13 Aspirin [Aspir 81] 81 mg PO BID 05/31/13 Lisinopril 2.5 mg PO DAILY 05/31/13 Lovastatin [Altoprev] 20 mg PO DAILY 05/31/13 Sitagliptin Phosphate [Januvia] 50 mg PO DAILY 05/31/13 Vit D3/Folic Acid/B2/B6/B12 [Folgard Tablet] 1 each PO DAILY 05/31/13 glipiZIDE ER [Glucotrol Xl] 2.5 mg PO 1200 05/31/13 Ascorbic Acid [Vitamin C] 500 mg PO DAILY 01/21/17 Metoprolol Succinate [Toprol Xl] 25 mg PO BID 01/21/17 Vitamin E (Dl,Tocopheryl Acet) [Vitamin E] 400 unit PO DAILY 01/21/17 Objective - Vital Signs/Intake & Output Reviewed Vital Signs: Yes Vital Signs: Vital Signs x48h Temp Pulse Resp BP BP Pulse Ox 01/23/17 08:00 36.9 C 104 H 18 104/38 L 96 01/23/17 05:37 36.5 C 95 20 105/81 H 94 Intake & Output: Intake & Output 01/20/17 01/21/17 01/22/17 01/23/17 23:59 23:59 23:59 23:59 Intake Total 50 150 Output Total 326 Balance 50 -326 150 - Objective General Appearance: positive: No acute distress, Alert. negative: Lethargic Eyes Bilateral: positive: Normal inspection, PERRL, EOMI, No lid inflammation, Conjunctivae nml ENT: positive: ENT inspection nml, Pharynx nml, No signs of dehydration. negative: Purulent nasal drainage, Pharyngeal erythema, Oral lesions Neck: positive: Nml inspection, Thyroid nml, No JVD, Trachea midline. negative : Thyromegaly, Lymphadenopathy (R), Lymphadenopathy (L), Stiff neck, Swelling/ bruising, Tracheal deviation Respiratory: positive: Chest non-tender, No respiratory distress, Breath sounds nml. negative: Wheezes, Rales, Rhonchi Cardiovascular: positive: Regular rate & rhythm, No murmur, No gallop. negative : Tachycardia, Bradycardia, Systolic murmur, Diastolic murmur Peripheral Pulses: 2+ Radial (R), 2+ Radial (L), 2+ Dorsalis pedis (R), 2+ Dorsalis pedis (L) Abdomen: positive: Non-tender, Nml bowel sounds, No distention. negative: Tenderness, Guarding, Rebound Back: positive: Nml inspection. negative: CVA tenderness (R), CVA tenderness (L ) Skin: positive: Color nml, No rash, Warm, Dry. negative: Cyanosis, Diaphoresis , Pallor, Skin rash Extremities: positive: Non-tender, Full ROM, Nml appearance. negative: Pedal edema, Calf tenderness, Jagruti's sign/cords Neurologic/Psychiatric: positive: Sensation nml, Disoriented to place, Disoriented to time. negative: Sensory loss, Facial droop, Slurred/abnml speech - Lab Results Fish Bones: 01/23/17 05:20 01/23/17 05:20 Other Labs: Lab Results x24hrs 01/23/17 01/23/17 01/23/17 Range/Units 08:11 08:01 05:53 WBC (4.8-10.8) x10^3/uL RBC (4.20-5.40) 10^6/uL Hgb (12.0-16.0) g/dL Hct (37.0-47.0) % MCV (81.0-99.0) fL MCH (27.0-31.0) pg MCHC (32.0-36.0) g/dL RDW (12.0-15.0) % Plt Count (130-450) 10^3/uL MPV (7.9-10.8) fL Neut # (1.5-6.6) 10^3/uL Lymph # (1.5-3.5) 10^3/uL [place] # (0.0-1.0) 10^3/uL Eos # (0.0-0.7) 10^3/uL Baso # (0.0-0.1) 10^3/uL Absolute Nucleated RBC x10^3/uL Nucleated RBC % /100WBC Sodium (135-145) mmol/L Potassium (3.5-5.0) mmol/L Chloride (101-111) mmol/L Carbon Dioxide (21-32) mmol/L Anion Gap (6-13) BUN (6-20) mg/dL Creatinine (0.4-1.0) mg/dL Estimated GFR (MDRD) (>89) Glucose (70-100) mg/dL POC Whole Bld Glucose 178 H (70 - 100) mg/dL Lactic Acid 1.2 (0.5-2.2) mmol/L Calcium (8.5-10.3) mg/dL Magnesium 2.0 (1.7-2.8) mg/dL Total Bilirubin (0.2-1.0) mg/dL AST (10-42) IU/L ALT (10-60) IU/L Alkaline Phosphatase (42-121) IU/L Total Protein (6.7-8.2) g/dL Albumin (3.2-5.5) g/dL Globulin (2.1-4.2) g/dL Albumin/Globulin Ratio (1.0-2.2) 01/23/17 01/23/17 01/22/17 Range/Units 05:20 05:20 20:15 WBC 15.0 H (4.8-10.8) x10^3/uL RBC 3.81 L (4.20-5.40) 10^6/uL Hgb 11.4 L (12.0-16.0) g/dL Hct 33.9 L (37.0-47.0) % MCV 88.8 (81.0-99.0) fL MCH 29.8 (27.0-31.0) pg MCHC 33.6 (32.0-36.0) g/dL RDW 14.6 (12.0-15.0) % Plt Count 221 (130-450) 10^3/uL MPV 7.5 L (7.9-10.8) fL Neut # 13.0 H (1.5-6.6) 10^3/uL Lymph # 1.0 L (1.5-3.5) 10^3/uL [place] # 0.8 (0.0-1.0) 10^3/uL Eos # 0.0 (0.0-0.7) 10^3/uL Baso # 0.0 (0.0-0.1) 10^3/uL Absolute Nucleated RBC 0.01 x10^3/uL Nucleated RBC % 0.0 /100WBC Sodium 138 (135-145) mmol/L Potassium 5.0 (3.5-5.0) mmol/L Chloride 110 (101-111) mmol/L Carbon Dioxide 22 (21-32) mmol/L Anion Gap 6.0 (6-13) BUN 23 H (6-20) mg/dL Creatinine 1.1 H (0.4-1.0) mg/dL Estimated GFR (MDRD) 47 L (>89) Glucose 165 H (70-100) mg/dL POC Whole Bld Glucose 128 H (70 - 100) mg/dL Lactic Acid (0.5-2.2) mmol/L Calcium 8.5 (8.5-10.3) mg/dL Magnesium (1.7-2.8) mg/dL Total Bilirubin 0.7 (0.2-1.0) mg/dL AST 25 (10-42) IU/L ALT 13 (10-60) IU/L Alkaline Phosphatase 65 (42-121) IU/L Total Protein 5.1 L (6.7-8.2) g/dL Albumin 2.7 L (3.2-5.5) g/dL Globulin 2.4 (2.1-4.2) g/dL Albumin/Globulin Ratio 1.1 (1.0-2.2) 01/22/17 01/22/17 01/22/17 Range/Units 16:19 12:12 07:41 WBC (4.8-10.8) x10^3/uL RBC (4.20-5.40) 10^6/uL Hgb (12.0-16.0) g/dL Hct (37.0-47.0) % MCV (81.0-99.0) fL MCH (27.0-31.0) pg MCHC (32.0-36.0) g/dL RDW (12.0-15.0) % Plt Count (130-450) 10^3/uL MPV (7.9-10.8) fL Neut # (1.5-6.6) 10^3/uL Lymph # (1.5-3.5) 10^3/uL [place] # (0.0-1.0) 10^3/uL Eos # (0.0-0.7) 10^3/uL Baso # (0.0-0.1) 10^3/uL Absolute Nucleated RBC x10^3/uL Nucleated RBC % /100WBC Sodium (135-145) mmol/L Potassium (3.5-5.0) mmol/L Chloride (101-111) mmol/L Carbon Dioxide (21-32) mmol/L Anion Gap (6-13) BUN (6-20) mg/dL Creatinine (0.4-1.0) mg/dL Estimated GFR (MDRD) (>89) Glucose (70-100) mg/dL POC Whole Bld Glucose 204 H 292 H 276 H (70 - 100) mg/dL Lactic Acid (0.5-2.2) mmol/L Calcium (8.5-10.3) mg/dL Magnesium (1.7-2.8) mg/dL Total Bilirubin (0.2-1.0) mg/dL AST (10-42) IU/L ALT (10-60) IU/L Alkaline Phosphatase (42-121) IU/L Total Protein (6.7-8.2) g/dL Albumin (3.2-5.5) g/dL Globulin (2.1-4.2) g/dL Albumin/Globulin Ratio (1.0-2.2) Assessment/Plan - Problem List (1) Colitis Impression: (1) Colitis pt's WBC continue down from 24 to 15, but pt is still mild diarrhea from nurse report. switch Cipro to rocephin and keep Flagyl continue IVF with NS 100cc/h continue ciprofloxacin and Flagyl follow up patient's stool cultures C. difficile PCR negative continue IV fluids pt's HGB increase slight order occult blood stool test (2) Urinary tract infection Conclusion/Plan: IV rocephin, follow up UA culture continue IV ciprofloxacin. follow up on urine cultures Qualifiers: Urinary tract infection type: site unspecified Hematuria presence: without hematuria Qualified Code(s): N39.0 - Urinary tract infection, site not specified (3) Hyponatremia Conclusion/Plan: resolved Patient will be given IV fluids We will monitor her sodium daily (4) Hypokalemia resolved (5) Hypertension stable, but slight lower BP, hold home BP meds, closely monitor tele and vital (6) Diabetes Conclusion/Plan: diabetic diet continue sliding scale for insulin as needed (7) CHF (congestive heart failure) ECHO is pending Patient's lisinopril and metoprolol will be held for hypotension. follow up echocardiogram to evaluate the patient's heart function to better guide our treatment. slight hydration (8) confusion better, remain her baseline. most likely it is pt's baseline, per nurse from pt's family report neuro check, may do CT of head if worsening
[2017-01-24] MEDS: metroNIDAZOLE 500 MG/100 ML 100 ML IV SCH ×4 (01:38→20:24)
[2017-01-24 05:12] LABS: BASOPHILS % (AUTO) 0.2 %; EOSINOPHILS # (AUTO) 0.3 10^3/uL (0.0-0.7); EOSINOPHILS % (AUTO) 2.4 %; HCT - HEMATOCRIT 29.5 % (37.0-47.0); HGB - HEMOGLOBIN 9.9 g/dL (12.0-16.0); LYMPHOCYTES % (AUTO) 8.1 %; MEAN CORPUSCULAR HEMOGLOBIN 29.6 pg (27.0-31.0); MEAN CORPUSCULAR HGB CONC 33.6 g/dL (32.0-36.0); MEAN PLATELET VOLUME 7.2 fL (7.9-10.8); MONOCYTES # (AUTO) 0.4 10^3/uL (0.0-1.0); MONOCYTES % (AUTO) 3.1 %; NEUTROPHILS # (AUTO) 10.8 10^3/uL (1.5-6.6); NEUTROPHILS % (AUTO) 86.2 %; NUCLEATED RED BLOOD CELLS AUTO 0.1 /100WBC; RED BLOOD COUNT 3.35 10^6/uL (4.20-5.40); RED CELL DISTRIBUTION WIDTH 14.6 % (12.0-15.0); UNCORRECTED WHITE BLOOD COUNT 12.5 x10^3/uL; WHITE BLOOD COUNT 12.5 x10^3/uL (4.8-10.8)
[2017-01-24 05:21] LABS: ALBUMIN/GLOBULIN RATIO 1.2 (1.0-2.2); BILIRUBIN,TOTAL 0.7 mg/dL (0.2-1.0); CREATININE 0.8 mg/dL (0.4-1.0); POTASSIUM 3.8 mmol/L (3.5-5.0); TOTAL PROTEIN 4.7 g/dL (6.7-8.2)
[2017-01-24] MEDS: SODIUM CHLORIDE FLUSH 0.9% 10 ML SYRINGE IVP SCH ×3 (07:26→20:27)
[2017-01-24] MEDS: INSULIN ASPART 300 UNIT/3 ML PEN SUBQ SCH ×4 (08:00→21:45)
[2017-01-24] MEDS ORDERED: cefTRIAXone 1 GM VIAL IV SCH (09:00)
[2017-01-24] MEDS: SODIUM CHLORIDE 0.9% 1,000 ML IV SCH ×3 (09:13→16:24)
[2017-01-24] MEDS: POLYETHYLENE GLYCOL 3350 17 GM PACKET PO SCH (09:15)
[2017-01-24] MEDS: FAMOTIDINE 20 MG TABLET PO SCH (09:18)
[2017-01-24] MEDS: MULTIVITAMIN TABLET PO SCH (09:18)
[2017-01-24] MEDS: cefTRIAXone 1 GM in SODIUM CHLORIDE 0.9% 100ML 100 ML IV SCH (11:06)
--- NOTE | 2017-01-24 13:18 | PROVIDER PROGRESS NOTE ---
Subjective - Prog Note Date Prog Note Date: 01/24/17 Objective - Vital Signs/Intake & Output Vital Signs: Vital Signs x48h Temp Pulse Resp BP Pulse Ox 01/24/17 05:20 36.6 C 98 20 112/57 L 100 Intake & Output: Intake & Output 01/21/17 01/22/17 01/23/17 01/24/17 23:59 23:59 23:59 23:59 Intake Total 50 940 400 Output Total 326 750 Balance 50 -326 190 400 - Lab Results Fish Bones: 01/24/17 04:56 01/24/17 04:56 Other Labs: Lab Results x24hrs 01/24/17 01/24/17 01/24/17 Range/Units 11:27 07:51 04:56 WBC (4.8-10.8) x10^3/uL RBC (4.20-5.40) 10^6/uL Hgb (12.0-16.0) g/dL Hct (37.0-47.0) % MCV (81.0-99.0) fL MCH (27.0-31.0) pg MCHC (32.0-36.0) g/dL RDW (12.0-15.0) % Plt Count (130-450) 10^3/uL MPV (7.9-10.8) fL Neut # (1.5-6.6) 10^3/uL Lymph # (1.5-3.5) 10^3/uL [place] # (0.0-1.0) 10^3/uL Eos # (0.0-0.7) 10^3/uL Baso # (0.0-0.1) 10^3/uL Absolute Nucleated RBC x10^3/uL Nucleated RBC % /100WBC Sodium 136 (135-145) mmol/L Potassium 3.8 (3.5-5.0) mmol/L Chloride 108 (101-111) mmol/L Carbon Dioxide 21 (21-32) mmol/L Anion Gap 7.0 (6-13) BUN 17 (6-20) mg/dL Creatinine 0.8 (0.4-1.0) mg/dL Estimated GFR (MDRD) 68 L (>89) Glucose 140 H (70-100) mg/dL POC Whole Bld Glucose 159 H 141 H (70 - 100) mg/dL Calcium 8.0 L (8.5-10.3) mg/dL Total Bilirubin 0.7 (0.2-1.0) mg/dL AST 21 (10-42) IU/L ALT 12 (10-60) IU/L Alkaline Phosphatase 62 (42-121) IU/L Total Protein 4.7 L (6.7-8.2) g/dL Albumin 2.6 L (3.2-5.5) g/dL Globulin 2.1 (2.1-4.2) g/dL Albumin/Globulin Ratio 1.2 (1.0-2.2) 01/24/17 01/23/17 01/23/17 Range/Units 04:56 20:35 16:51 WBC 12.5 H (4.8-10.8) x10^3/uL RBC 3.35 L (4.20-5.40) 10^6/uL Hgb 9.9 L (12.0-16.0) g/dL Hct 29.5 L (37.0-47.0) % MCV 88.0 (81.0-99.0) fL MCH 29.6 (27.0-31.0) pg MCHC 33.6 (32.0-36.0) g/dL RDW 14.6 (12.0-15.0) % Plt Count 195 (130-450) 10^3/uL MPV 7.2 L (7.9-10.8) fL Neut # 10.8 H (1.5-6.6) 10^3/uL Lymph # 1.0 L (1.5-3.5) 10^3/uL [place] # 0.4 (0.0-1.0) 10^3/uL Eos # 0.3 (0.0-0.7) 10^3/uL Baso # 0.0 (0.0-0.1) 10^3/uL Absolute Nucleated RBC 0.01 x10^3/uL Nucleated RBC % 0.1 /100WBC Sodium (135-145) mmol/L Potassium (3.5-5.0) mmol/L Chloride (101-111) mmol/L Carbon Dioxide (21-32) mmol/L Anion Gap (6-13) BUN (6-20) mg/dL Creatinine (0.4-1.0) mg/dL Estimated GFR (MDRD) (>89) Glucose (70-100) mg/dL POC Whole Bld Glucose 192 H 160 H (70 - 100) mg/dL Calcium (8.5-10.3) mg/dL Total Bilirubin (0.2-1.0) mg/dL AST (10-42) IU/L ALT (10-60) IU/L Alkaline Phosphatase (42-121) IU/L Total Protein (6.7-8.2) g/dL Albumin (3.2-5.5) g/dL Globulin (2.1-4.2) g/dL Albumin/Globulin Ratio (1.0-2.2) Assessment/Plan - Problem List (1) Colitis Impression: (1) Colitis pt's WBC continue down from 24 to 12, diarrhea is controlled continue current treatment, rocephin and Flagyl C.Diff and stool culture reviewed, unremarkable daily lab and vital and tele monitor. switch Cipro to rocephin and keep Flagyl continue IVF with NS 100cc/h continue ciprofloxacin and Flagyl follow up patient's stool cultures C. difficile PCR negative continue IV fluids pt's HGB increase slight order occult blood stool test (2) Urinary tract infection Conclusion/Plan: IV rocephin, UA culture and sensitive study reviewed, positive Staphlococcus Cohnii Qualifiers: Urinary tract infection type: site unspecified Hematuria presence: without hematuria Qualified Code(s): N39.0 - Urinary tract infection, site not specified (3) Hyponatremia Conclusion/Plan: resolved Patient will be given IV fluids We will monitor her sodium daily (4) Hypokalemia resolved (5) Hypertension stable, but slight lower BP, hold home BP meds, closely monitor tele and vital (6) Diabetes Conclusion/Plan: diabetic diet continue sliding scale for insulin as needed (7) CHF (congestive heart failure) ECHO reviewed, LV function is normal (8) malnutrition patient refuse to eat will discuss with pt's daughter order feeding pt
[2017-01-24] MEDS: ATORVASTATIN 10 MG TABLET PO SCH (20:26)
[2017-01-24] MEDS: ZINC OXIDE 20% OINT 28.35 GM TUBE TOP SCH (21:56)
[2017-01-25 00:49] VITALS: BP 131/56
[2017-01-25] MEDS: metroNIDAZOLE 500 MG/100 ML 100 ML IV SCH ×2 (02:03→10:16)
[2017-01-25] MEDS: SODIUM CHLORIDE 0.9% 1,000 ML IV SCH (03:45)
[2017-01-25] MEDS: SODIUM CHLORIDE FLUSH 0.9% 10 ML SYRINGE IVP SCH (05:31)
[2017-01-25 06:45] LABS: BASOPHILS % (AUTO) 0.1 %; EOSINOPHILS # (AUTO) 0.4 10^3/uL (0.0-0.7); EOSINOPHILS % (AUTO) 3.8 %; HGB - HEMOGLOBIN 10.1 g/dL (12.0-16.0); LYMPHOCYTES # (AUTO) 1.1 10^3/uL (1.5-3.5); LYMPHOCYTES % (AUTO) 10.7 %; MEAN CORPUSCULAR HEMOGLOBIN 29.6 pg (27.0-31.0); MEAN CORPUSCULAR HGB CONC 33.6 g/dL (32.0-36.0); MEAN PLATELET VOLUME 7.2 fL (7.9-10.8); MONOCYTES # (AUTO) 0.5 10^3/uL (0.0-1.0); MONOCYTES % (AUTO) 5.2 %; NEUTROPHILS # (AUTO) 8.3 10^3/uL (1.5-6.6); NEUTROPHILS % (AUTO) 80.2 %; NUCLEATED RED BLOOD CELLS AUTO 0.1 /100WBC; RED BLOOD COUNT 3.41 10^6/uL (4.20-5.40); RED CELL DISTRIBUTION WIDTH 14.7 % (12.0-15.0); UNCORRECTED WHITE BLOOD COUNT 10.3 x10^3/uL; WHITE BLOOD COUNT 10.3 x10^3/uL (4.8-10.8)
[2017-01-25 07:31] LABS: ALBUMIN/GLOBULIN RATIO 1.4 (1.0-2.2); BILIRUBIN,TOTAL 0.7 mg/dL (0.2-1.0); CALCIUM 7.8 mg/dL (8.5-10.3); CREATININE 0.7 mg/dL (0.4-1.0); POTASSIUM 3.6 mmol/L (3.5-5.0); TOTAL PROTEIN 4.7 g/dL (6.7-8.2)
--- NOTE | 2017-01-25 07:41 | PROVIDER PROGRESS NOTE ---
Subjective - Prog Note Date Prog Note Date: 01/25/17 - Subjective Subjective: nurse report pt did not have diarrhea, did not have bloody stained stool. Pt's daughter request pt to be D/C to home this morning. Objective - Vital Signs/Intake & Output Vital Signs: Vital Signs x48h Temp Pulse Resp BP Pulse Ox 01/25/17 00:47 37.0 C 94 18 131/56 H 97 Intake & Output: Intake & Output 01/22/17 01/23/17 01/24/17 01/25/17 23:59 23:59 23:59 23:59 Intake Total 940 600 Output Total 326 750 Balance -326 190 600 - Lab Results Fish Bones: 01/25/17 06:37 01/25/17 06:37 Other Labs: Lab Results x24hrs 01/25/17 01/25/17 01/24/17 Range/Units 06:37 06:37 21:38 WBC 10.3 (4.8-10.8) x10^3/uL RBC 3.41 L (4.20-5.40) 10^6/uL Hgb 10.1 L (12.0-16.0) g/dL Hct 30.0 L (37.0-47.0) % MCV 88.0 (81.0-99.0) fL MCH 29.6 (27.0-31.0) pg MCHC 33.6 (32.0-36.0) g/dL RDW 14.7 (12.0-15.0) % Plt Count 217 (130-450) 10^3/uL MPV 7.2 L (7.9-10.8) fL Neut # 8.3 H (1.5-6.6) 10^3/uL Lymph # 1.1 L (1.5-3.5) 10^3/uL King # 0.5 (0.0-1.0) 10^3/uL Eos # 0.4 (0.0-0.7) 10^3/uL Baso # 0.0 (0.0-0.1) 10^3/uL Absolute Nucleated RBC 0.01 x10^3/uL Nucleated RBC % 0.1 /100WBC Sodium 136 (135-145) mmol/L Potassium 3.6 (3.5-5.0) mmol/L Chloride 109 (101-111) mmol/L Carbon Dioxide 21 (21-32) mmol/L Anion Gap 6.0 (6-13) BUN 10 (6-20) mg/dL Creatinine 0.7 (0.4-1.0) mg/dL Estimated GFR (MDRD) 80 L (>89) Glucose 125 H (70-100) mg/dL POC Whole Bld Glucose 151 H (70 - 100) mg/dL Calcium 7.8 L (8.5-10.3) mg/dL Total Bilirubin 0.7 (0.2-1.0) mg/dL AST 23 (10-42) IU/L ALT 13 (10-60) IU/L Alkaline Phosphatase 58 (42-121) IU/L Total Protein 4.7 L (6.7-8.2) g/dL Albumin 2.7 L (3.2-5.5) g/dL Globulin 2.0 L (2.1-4.2) g/dL Albumin/Globulin Ratio 1.4 (1.0-2.2) 01/24/17 01/24/17 01/24/17 Range/Units 16:40 11:27 07:51 WBC (4.8-10.8) x10^3/uL RBC (4.20-5.40) 10^6/uL Hgb (12.0-16.0) g/dL Hct (37.0-47.0) % MCV (81.0-99.0) fL MCH (27.0-31.0) pg MCHC (32.0-36.0) g/dL RDW (12.0-15.0) % Plt Count (130-450) 10^3/uL MPV (7.9-10.8) fL Neut # (1.5-6.6) 10^3/uL Lymph # (1.5-3.5) 10^3/uL King # (0.0-1.0) 10^3/uL Eos # (0.0-0.7) 10^3/uL Baso # (0.0-0.1) 10^3/uL Absolute Nucleated RBC x10^3/uL Nucleated RBC % /100WBC Sodium (135-145) mmol/L Potassium (3.5-5.0) mmol/L Chloride (101-111) mmol/L Carbon Dioxide (21-32) mmol/L Anion Gap (6-13) BUN (6-20) mg/dL Creatinine (0.4-1.0) mg/dL Estimated GFR (MDRD) (>89) Glucose (70-100) mg/dL POC Whole Bld Glucose 155 H 159 H 141 H (70 - 100) mg/dL Calcium (8.5-10.3) mg/dL Total Bilirubin (0.2-1.0) mg/dL AST (10-42) IU/L ALT (10-60) IU/L Alkaline Phosphatase (42-121) IU/L Total Protein (6.7-8.2) g/dL Albumin (3.2-5.5) g/dL Globulin (2.1-4.2) g/dL Albumin/Globulin Ratio (1.0-2.2)
[2017-01-25] MEDS: INSULIN ASPART 300 UNIT/3 ML PEN SUBQ SCH ×2 (10:14→11:48)
[2017-01-25] MEDS: POLYETHYLENE GLYCOL 3350 17 GM PACKET PO SCH (10:18)
--- NOTE | 2017-01-25 10:37 | Discharge Plan ---
Discharge Plan Disposition: 01 Home, Self Care Condition: Stable Prescriptions: Metronidazole [Flagyl] 500 mg PO TID #15 tablet Diet: Diabetic Activity Restrictions: Activity as Tolerated Shower Restrictions: No Driving Restrictions: Yes Weight Bearing: Full Weight Additional Instructions or Follow Up instructions: May see PCP in one week Follow-Up Care: [facility] - Medical, [facility] - Diabetes Ed No Smoking: If you smoke, Please STOP! Call for help. Follow-up with: Eduarda Lynch MD [Primary Care Provider] -
[2017-01-25] MEDS ORDERED: cefTRIAXone 1 GM VIAL IM ONE ×2 (11:28→12:00)
[2017-01-25] MEDS: FAMOTIDINE 20 MG TABLET PO SCH (11:34)
[2017-01-25] MEDS: MULTIVITAMIN TABLET PO SCH (11:34)
--- NOTE | 2017-01-25 11:48 | DISCHARGE SUMMARY ---
Discharge Summary Admit Date: 01/21/17 Discharge Date: 01/25/17 Discharging Provider: HONG Primary Care Provider: Eduarda Jaramillo Code Status: Do Not Attempt Resuscitation Condition at Discharge: Stable Discharge Disposition: 01 Home, Self Care Discharge Facility Name: home - DIAGNOSES Admission Diagnoses: (1) Colitis (2) Urinary tract infection (3) Hyponatremia (4) Hypokalemia (5) Hypertension (6) Diabetes (7) CHF (congestive heart failure) (8) Dementia Discharge Diagnoses with Status of Each Condition: (1) Colitis WBC down to the normal from 25. Pt did not have diarrhea, bloody stool, no abdominal pain, per nurse report continue to finish the antibiotics course (2) Urinary tract infection No dysuria or hematuria reported continue to finish the antibiotics course (3) Hyponatremia resolved (4) Hypokalemia resolved (5) Hypertension stable, continue PCP management (6) Diabetes stable, continue PCP management (7) CHF (congestive heart failure) stable, continue PCP management (8) Dementia stable as pt's baseline per pt's daughter's report, continue PCP management - HPI History of Present Illness: please refer from Dr. Chavez's HPI on 01/21/17 as the following: Patient is an 86-year-old female with a past medical history significant for hypertension, hyperlipidemia, diabetes, CHF, osteoporosis, osteoarthritis and dementia who presents to the emergency department secondary to having a low blood pressure. The patient is unable to provide any history secondary to her dementia the history is provided by the patient's daughter. The patient's daughter states that for the last several days the patient has been increasingly agitated at home. However the patient has been eating and drinking normally until this evening. The patient's daughter states that the patient was with the caregiver this evening and the caregiver called the patient 's daughter because patient was vomiting. According to the patient's daughter the patient also looked very pale therefore they called 911. The caregiver also noted that the patient was clenching her abdomen and seemed to be in abdominal pain. When EMS arrived at the patient's home the patient was found to be hypotensive with a systolic blood pressure in the 60s. They then proceeded to bring the patient into the emergency department. The patient was not febrile or tachycardic at that time. The patient was unable to provide any further review of systems secondary to her dementia. The patient's daughter stated that she had not noticed the patient having any significant complaints over the last couple of days other than she noticed that the patient had been more agitated than normal the last few days. She also stated that the patient was not as active as normal. Otherwise the patient had not been having any fevers, complaining of any chest pain, shortness of air, or abdominal pain before today. The patient had also not had any increased urinary frequency or changes in her neurologic status. On presentation to the emergency department the patient was afebrile and blood pressure had improved and she was given fluid in the ambulance and it was up to 105/46 otherwise her vital signs were stable. The patient did have several bowel movements in the emergency department and they appear to be loose with bloody stools. The patient did appear to be favoring her left lower quadrant of her abdomen and it was tender on examination. The patient's lab work revealed a leukocytosis of 24.8 with a lactic acid of 2.6. The patient's labs also revealed a low sodium and low potassium consistent with dehydration. The patient's UA was positive with greater than 25 WBCs and many bacteria. The patient was sent for a CT scan of her abdomen and pelvis which revealed no bowel obstruction but fairly diffuse colonic thickening with mild pericolonic inflammatory changes from the mid transverse colon to the rectum which were consistent with diffuse colitis. The patient was admitted to the hospital with colitis and urinary tract infection. - HOSPITAL COURSE Hospital Course: Pt was admitted for abdominal pain, tenderness, bloody stained diarrhea, and UTI. CT of abdomen found pt had colitis. Pt was treated with rocephin and flagyl. After treated, pt did not have diarrhea, no abdominal pain, no dysuria. WBC from 25 down to 10, hyponatremia and hypokaemia was resolved. Dementia is as her baseline per pt's daughter report. Pt's daughter request pt to be D/C today - ALLERGIES Allergies/Adverse Reactions: Allergies Allergy/AdvReac Type Severity Reaction Status Date / Time codeine Allergy Mild Anxiety Verified 05/31/13 13:39 shellfish derived Allergy Mild Anxiety Verified 05/31/13 13:39 - MEDICATIONS Home Medications: Ambulatory Orders Medication Instructions Recorded Confirmed Alendronate [Fosamax] 70 mg PO UD 05/31/13 01/22/17 Aspirin [Aspir 81] 81 mg PO BID 05/31/13 01/21/17 Lisinopril 2.5 mg PO DAILY 05/31/13 01/21/17 Lovastatin [Altoprev] 20 mg PO DAILY 05/31/13 01/21/17 Sitagliptin Phosphate [Januvia] 50 mg PO DAILY 05/31/13 01/21/17 Vit D3/Folic Acid/B2/B6/B12 1 each PO DAILY 05/31/13 01/21/17 [Folgard Tablet] glipiZIDE ER [Glucotrol Xl] 2.5 mg PO 1200 05/31/13 01/21/17 Ascorbic Acid [Vitamin C] 500 mg PO DAILY 01/21/17 01/21/17 Metoprolol Succinate [Toprol Xl] 25 mg PO BID 01/21/17 01/21/17 Vitamin E (Dl,Tocopheryl Acet) 400 unit PO DAILY 01/21/17 01/21/17 [Vitamin E] Metronidazole [Flagyl] 500 mg PO TID #15 tablet 01/25/17 - PHYSICAL EXAM AT DISCHARGE General Appearance: positive: No acute distress, Alert. negative: Lethargic Eyes Bilateral: positive: Normal inspection, PERRL, No lid inflammation, Conjunctivae nml ENT: positive: ENT inspection nml, Pharynx nml, No signs of dehydration. negative: Purulent nasal drainage, Pharyngeal erythema, Oral lesions Neck: positive: Nml inspection, Thyroid nml, Trachea midline. negative: Thyromegaly, Lymphadenopathy (R), Lymphadenopathy (L), Stiff neck, Tracheal deviation Respiratory: positive: Chest non-tender, No respiratory distress, Breath sounds nml. negative: Wheezes, Rales, Rhonchi Cardiovascular: positive: Regular rate & rhythm, No murmur, No gallop. negative : Extrasystoles, Tachycardia, Bradycardia Peripheral Pulses: positive: 2+ Abdomen: positive: Non-tender, Nml bowel sounds, No distention. negative: Tenderness, Guarding, Rebound Back: positive: Nml inspection. negative: CVA tenderness (R), CVA tenderness (L ) Skin: positive: Color nml, No rash, Warm. negative: Cyanosis, Diaphoresis, Pallor Extremities: positive: Non-tender, Full ROM, Nml appearance. negative: Pedal edema, Jagruti's sign/cords Neurologic/Psychiatric: positive: Sensation nml, Disoriented to person, Disoriented to place, Disoriented to time. negative: Sensory loss, Facial droop , Slurred/abnml speech - LABS Result Diagrams: 01/25/17 06:37 01/25/17 06:37 - FOLLOW UP Follow Up: pt may see PCP in one week, and continue to finish the antibiotic course.
[2017-01-25] MEDS ORDERED: metroNIDAZOLE 250 MG TABLET PO SCH (12:00)
[2017-01-25] MEDS: ZINC OXIDE 20% OINT 28.35 GM TUBE TOP SCH (12:02)
[2017-01-25] MEDS: cefTRIAXone 1 GM in SODIUM CHLORIDE 0.9% 100ML 100 ML IV SCH (14:51)
== END 2017-01-25 13:46 | disposition home or self-care (01) | DRG 392 ==
LOC: ED 16:11 → MS3 19:57
PROVIDERS: ADMIT Internal Medicine; ATTEND Nurse Practitioner Gerontology
DX: K92.2 Gastrointestinal hemorrhage, unspecified (principal); A09 Infectious gastroenteritis and colitis, unspecified; N39.0 Urinary tract infection, site not specified; E87.1 Hypo-osmolality and hyponatremia; B95.7 Other staphylococcus as the cause of diseases classified elsewhere; I11.0 Hypertensive heart disease with heart failure; I50.9 Heart failure, unspecified; E11.9 Type 2 diabetes mellitus without complications; F03.90 Unspecified dementia, unspecified severity, without behavioral disturbance, psychotic disturbance, mood disturbance, and anxiety; H91.90 Unspecified hearing loss, unspecified ear; E87.6 Hypokalemia; E78.5 Hyperlipidemia, unspecified; M81.0 Age-related osteoporosis without current pathological fracture; M19.90 Unspecified osteoarthritis, unspecified site; E86.0 Dehydration; Z87.891 Personal history of nicotine dependence; Z79.899 Other long term (current) drug therapy; Z79.82 Long term (current) use of aspirin
CPT/HCPCS: 36415; 74177; 80053; 81001; 81003; 82270; 82550; 82553; 83036; 83605; 83630; 83690; 83735; 84100; 84484; 85025; 85610; 86850; 86900; 86901; 86920; 87045; 87046; 87077; 87086; 87493; 93005; 93306; 96361; 96365; 96367; 99285

== ENCOUNTER 2017-02-05 04:40 | Outpatient (CLI) | payer MEDICARE, OTHER | END 2017-02-05 04:41 | disposition EMS.NT | LOC: EMS 04:40 | PROVIDERS: ATTEND Surgery | DX: Z03.89 Encounter for observation for other suspected diseases and conditions ruled out (principal); W01.0XXA Fall on same level from slipping, tripping and stumbling without subsequent striking against object, initial encounter; Y92.003 Bedroom of unspecified non-institutional (private) residence as the place of occurrence of the external cause ==

== ENCOUNTER 2017-04-10 07:34 | Outpatient (CLI) | payer MEDICARE, OTHER | END 2017-04-10 07:35 | disposition EMS.NT | LOC: EMS 07:34 | PROVIDERS: ATTEND Surgery | DX: Z03.89 Encounter for observation for other suspected diseases and conditions ruled out (principal); W18.39XA Other fall on same level, initial encounter; Y92.002 Bathroom of unspecified non-institutional (private) residence as the place of occurrence of the external cause ==

== ENCOUNTER 2017-05-12 10:36 | Outpatient (CLI) | payer MEDICARE, OTHER | END 2017-05-12 10:37 | disposition critical access hospital (66) | LOC: EMS 10:36 | PROVIDERS: ATTEND Surgery | DX: R52 Pain, unspecified (principal) | CPT/HCPCS: A0425; A0429 ==

== ENCOUNTER 2017-05-12 10:56 | Emergency (ER) | payer MEDICARE, OTHER ==
--- NOTE | 2017-05-12 12:08 | XRAY Report ---
EXAM: CHEST RADIOGRAPHY EXAM DATE: 05/12/2017 11:48 AM. CLINICAL HISTORY: Pain, unsure location. COMPARISON: 06/27/2016. TECHNIQUE: 1 view. FINDINGS: Lungs/Pleura: Bilateral moderate emphysematous lungs without new focal opacities evident. The small l eft basal opacity and the small pleural-based opacity in the lateral right lower chest are again note d, without significant interval changes, likely small atelectasis. No pleural effusion. No pneumothor ax. Mediastinum: Mild cardiomegaly is stable in appearance. Other: Moderate to severe s-shaped scoliosis of the thoracic spine demonstrated no significant interv al changes. IMPRESSION: No significant interval change of the single view chest with chronic findings; no new pul monary opacity or acute cardiopulmonary process. [facility] Referring Provider Line: [phone] SITE ID: [id number]
--- NOTE | 2017-05-12 12:08 | XRAY Preliminary Report ---
Exam: XR CHEST 1 VIEW X-RAY IMPRESSION: No significant interval change of the single view chest with chronic findings; no new pul monary opacity or acute cardiopulmonary process. [facility] SITE ID: [id number]
[2017-05-12 12:15] LABS: BASOPHILS # (AUTO) 0.1 10^3/uL (0.0-0.1); BASOPHILS % (AUTO) 0.8 %; EOSINOPHILS # (AUTO) 0.1 10^3/uL (0.0-0.7); EOSINOPHILS % (AUTO) 1.4 %; HGB - HEMOGLOBIN 11.3 g/dL (12.0-16.0); LYMPHOCYTES # (AUTO) 1.4 10^3/uL (1.5-3.5); LYMPHOCYTES % (AUTO) 18.3 %; MEAN CORPUSCULAR HEMOGLOBIN 28.7 pg (27.0-31.0); MEAN CORPUSCULAR HGB CONC 33.9 g/dL (32.0-36.0); MEAN CORPUSCULAR VOLUME 84.8 fL (81.0-99.0); MEAN PLATELET VOLUME 6.7 fL (7.9-10.8); MONOCYTES # (AUTO) 0.5 10^3/uL (0.0-1.0); MONOCYTES % (AUTO) 7.1 %; NEUTROPHILS # (AUTO) 5.6 10^3/uL (1.5-6.6); NEUTROPHILS % (AUTO) 72.4 %; PLT - PLATELET COUNT 350 10^3/uL (130-450); RED BLOOD COUNT 3.93 10^6/uL (4.20-5.40); RED CELL DISTRIBUTION WIDTH 14.9 % (12.0-15.0); WHITE BLOOD COUNT 7.7 x10^3/uL (4.8-10.8)
[2017-05-12 12:28] LABS: ALBUMIN 3.1 g/dL (3.2-5.5); ALBUMIN/GLOBULIN RATIO 0.9 (1.0-2.2); ALKALINE PHOSPHATASE 71 IU/L (42-121); ALT ALANINE AMINOTRANSFERASE < 10 IU/L (10-60); AST ASPARTATE AMINOTRANSFERASE 14 IU/L (10-42); BILIRUBIN,TOTAL 0.5 mg/dL (0.2-1.0); BUN - BLOOD UREA NITROGEN 15 mg/dL (6-20); CARBON DIOXIDE - CO2 23 mmol/L (21-32); CHLORIDE 102 mmol/L (101-111); CREATININE 0.9 mg/dL (0.4-1.0); GFR - MDRD 60 (>89); GLUCOSE 101 mg/dL (70-100); LIPASE 16 U/L (22-51); SODIUM 134 mmol/L (135-145); TOTAL PROTEIN 6.7 g/dL (6.7-8.2)
--- NOTE | 2017-05-12 13:24 | ED Physician Documentation ---
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 : None HEENT: None Psych: None Musculoskeletal: None Derm: None - Present Medications Home Medications: Ambulatory Orders Medication Instructions Recorded Confirmed Alendronate [Fosamax] 70 mg PO UD 05/31/13 05/12/17 Aspirin [Aspir 81] 81 mg PO BID 05/31/13 05/12/17 Lisinopril 2.5 mg PO DAILY 05/31/13 05/12/17 Lovastatin [Altoprev] 20 mg PO DAILY 05/31/13 05/12/17 Sitagliptin Phosphate [Januvia] 50 mg PO DAILY 05/31/13 05/12/17 Vit D3/Folic Acid/B2/B6/B12 1 each PO DAILY 05/31/13 01/21/17 [Folgard Tablet] glipiZIDE ER [Glucotrol Xl] 2.5 mg PO 1200 05/31/13 05/12/17 Ascorbic Acid [Vitamin C] 500 mg PO DAILY 01/21/17 01/21/17 Metoprolol Succinate [Toprol Xl] 25 mg PO BID 01/21/17 05/12/17 Vitamin E (Dl,Tocopheryl Acet) 400 unit PO DAILY 01/21/17 01/21/17 [Vitamin E] - Allergies Allergies/Adverse Reactions: Allergies Allergy/AdvReac Type Severity Reaction Status Date / Time codeine Allergy Mild Anxiety Verified 05/31/13 13:39 shellfish derived Allergy Mild Anxiety Verified 05/12/17 11:06 - Social History Does the pt smoke?: No Smoking Status: Never smoker Does the pt drink ETOH?: No Does the pt have substance abuse?: No - Immunizations Immunizations are current?: Yes - POLST Patient has POLST: Yes POLST Status: Limited Interventions (DNR) Results - Vitals Vitals: Vital Signs - 24 hr 05/12/17 11:03 Temperature 36.2 C L Heart Rate 70 Respiratory 20 Rate Blood Pressure 142/96 H O2 Saturation 98 Oxygen O2 Source Room air - Labs Labs: Laboratory Tests 05/12/17 05/12/17 05/12/17 11:44 12:05 12:05 WBC 7.7 RBC 3.93 L Hgb 11.3 L Hct 33.3 L MCV 84.8 MCH 28.7 MCHC 33.9 RDW 14.9 Plt Count 350 MPV 6.7 L Neut # 5.6 Lymph # 1.4 L Mcnairy # 0.5 Eos # 0.1 Baso # 0.1 Absolute Nucleated RBC 0.00 Nucleated RBC % 0.0 Sodium 134 L Potassium 4.0 Chloride 102 Carbon Dioxide 23 Anion Gap 9.0 BUN 15 Creatinine 0.9 Estimated GFR (MDRD) 60 L Glucose 101 H Lactic Acid 1.2 Calcium 9.0 Total Bilirubin 0.5 AST 14 ALT < 10 L Alkaline Phosphatase 71 Troponin I Total Protein 6.7 Albumin 3.1 L Globulin 3.6 Albumin/Globulin Ratio 0.9 L Lipase 16 L 05/12/17 12:05 WBC RBC Hgb Hct MCV MCH MCHC RDW Plt Count MPV Neut # Lymph # Mcnairy # Eos # Baso # Absolute Nucleated RBC Nucleated RBC % Sodium Potassium Chloride Carbon Dioxide Anion Gap BUN Creatinine Estimated GFR (MDRD) Glucose Lactic Acid Calcium Total Bilirubin AST ALT Alkaline Phosphatase Troponin I < 0.04 Total Protein Albumin Globulin Albumin/Globulin Ratio Lipase
--- NOTE | 2017-05-12 13:30 | ED Physician Documentation ---
PD HPI ABD PAIN - Stated complaint Stated Complaint: PX - Chief complaint Chief Complaint: General - History obtained from History obtained from: Patient, Family (daughter, who stayed in waiting room and would not come back to patient room), EMS - History of Present Illness Timing - onset: Today (Patient reportedly was complaining of pain through the night and this morning. Has significant dementia so unable to tell where the pain was. Daughter gave some tylenol at 2 am which seemed to help and then again just prior to EMS arrival. She is not complaining of pain right now. Has had problems with general/nonfocal pain in the past at times.) Timing - duration: Days (1) Timing - details: Intermittant Quality: Other (Patient is unable to describe the character due to her dementia. ) Location: All over / everywhere (Hard to tell whether it was stomach pain generally or even back or generalized pains.) Improved by: Meds (tylenol) Associated symptoms: No: Vomiting, Diarrhea, Near syncope / syncope, Weight loss Similar symptoms before: No diagnosis (Frequently complains of generalized pains or nonfocal pains. Her daughter expresses some frustration to the nurse about the patient complaining of pain often and needing Tylenol 2-3 times a day. 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 : None HEENT: None Psych: None Musculoskeletal: None Derm: None - Present Medications Home Medications: Ambulatory Orders Medication Instructions Recorded Confirmed Alendronate [Fosamax] 70 mg PO UD 05/31/13 05/12/17 Aspirin [Aspir 81] 81 mg PO BID 05/31/13 05/12/17 Lisinopril 2.5 mg PO DAILY 05/31/13 05/12/17 Lovastatin [Altoprev] 20 mg PO DAILY 05/31/13 05/12/17 Sitagliptin Phosphate [Januvia] 50 mg PO DAILY 05/31/13 05/12/17 Vit D3/Folic Acid/B2/B6/B12 1 each PO DAILY 05/31/13 01/21/17 [Folgard Tablet] glipiZIDE ER [Glucotrol Xl] 2.5 mg PO 1200 05/31/13 05/12/17 Ascorbic Acid [Vitamin C] 500 mg PO DAILY 01/21/17 01/21/17 Metoprolol Succinate [Toprol Xl] 25 mg PO BID 01/21/17 05/12/17 Vitamin E (Dl,Tocopheryl Acet) 400 unit PO DAILY 01/21/17 01/21/17 [Vitamin E] Docusate Sodium 100 mg PO DAILY #30 capsule 05/12/17 Tramadol HCl 50 mg PO Q6H PRN #20 tablet 05/12/17 - Allergies Allergies/Adverse Reactions: Allergies Allergy/AdvReac Type Severity Reaction Status Date / Time codeine Allergy Mild Anxiety Verified 05/31/13 13:39 shellfish derived Allergy Mild Anxiety Verified 05/12/17 11:06 - Social History Does the pt smoke?: No Smoking Status: Never smoker Does the pt drink ETOH?: No Does the pt have substance abuse?: No - Immunizations Immunizations are current?: Yes - POLST Patient has POLST: Yes POLST Status: Limited Interventions (DNR) PD ED PE NORMAL - Vitals Vital signs reviewed: Yes - General General: No acute distress, Other (She does respond to her name. She does not have conversation. She has slightly unkempt hair but otherwise looks groomed well enough.) - HEENT HEENT: Atraumatic, Moist mucous membranes - Neck Neck: Supple, no meningeal sign, No adenopathy - Cardiac Cardiac: RRR, No murmur - Respiratory Respiratory: Clear bilaterally - Abdomen Abdomen: Soft, Non tender, Non distended - Back Back: No CVA TTP - Derm Derm: Normal color, Warm and dry - Extremities Extremities: No tenderness to palpate, Normal ROM s pain - Neuro Neuro: No motor deficit - Psych Psych: Normal mood Results - Vitals Vitals: Vital Signs - 24 hr 05/12/17 05/12/17 11:03 13:37 Temperature 36.2 C L 36.4 C L Heart Rate 70 64 Respiratory 20 20 Rate Blood Pressure 142/96 H 93/75 O2 Saturation 98 99 Oxygen O2 Source Room air - Labs Labs: Laboratory Tests 05/12/17 05/12/17 05/12/17 11:44 12:05 12:05 WBC 7.7 RBC 3.93 L Hgb 11.3 L Hct 33.3 L MCV 84.8 MCH 28.7 MCHC 33.9 RDW 14.9 Plt Count 350 MPV 6.7 L Neut # 5.6 Lymph # 1.4 L [place] # 0.5 Eos # 0.1 Baso # 0.1 Absolute Nucleated RBC 0.00 Nucleated RBC % 0.0 Sodium 134 L Potassium 4.0 Chloride 102 Carbon Dioxide 23 Anion Gap 9.0 BUN 15 Creatinine 0.9 Estimated GFR (MDRD) 60 L Glucose 101 H Lactic Acid 1.2 Calcium 9.0 Total Bilirubin 0.5 AST 14 ALT < 10 L Alkaline Phosphatase 71 Troponin I Total Protein 6.7 Albumin 3.1 L Globulin 3.6 Albumin/Globulin Ratio 0.9 L Lipase 16 L 05/12/17 12:05 WBC RBC Hgb Hct MCV MCH MCHC RDW Plt Count MPV Neut # Lymph # [place] # Eos # Baso # Absolute Nucleated RBC Nucleated RBC % Sodium Potassium Chloride Carbon Dioxide Anion Gap BUN Creatinine Estimated GFR (MDRD) Glucose Lactic Acid Calcium Total Bilirubin AST ALT Alkaline Phosphatase Troponin I < 0.04 Total Protein Albumin Globulin Albumin/Globulin Ratio Lipase - Rads (name of study) chest Radiology: Prelim report reviewed, EMP read contemporaneously (scoliosis, no acute process noted) PD MEDICAL DECISION MAKING - ED course Complexity details: reviewed results, re-evaluated patient (She still seems comfortable and does not complain of any pains. Recheck of her abdomen still is not tender. I do not know what was pain in her previously. She could certainly have musculoskeletal pains generally. Tylenol seems to be effective but the daughter told the nurse that it did not seem to last through the night. We could try tramadol at nighttime along with the stool softener so she does not get constipated. Otherwise follow-up with your primary care.), considered differential (not really sure what was hurting. Will check some labs to see if signs of illness. She seems comfortable here. ), d/w patient Departure - Departure Disposition: 01 Home, Self Care Clinical Impression: Generalized pain Condition: Stable Record reviewed to determine appropriate education?: Yes Instructions: ED Acute Pain [facility] Follow-Up: Eduarda Lynch MD [Primary Care Provider] - Prescriptions: Docusate Sodium 100 mg PO DAILY #30 capsule Tramadol HCl 50 mg PO Q6H PRN #20 tablet PRN Reason: Pain Comments: Katy seems comfortable here in the ER and is not complaining of any pain. Presumably the Tylenol she had was effective. You could continue the Tylenol every 6 hours if needed. If she has additional general pains, you could use tramadol instead or in addition, particularly at bedtime and see if it continues for longer duration through the night. This could potentially be constipating so use a daily stool softener as well. Recheck if she has persistent problems. I cannot tell where she was hurting as she is unable to really relate where her pain was. Discharge Date/Time: 05/12/17 13:52
[2017-05-12 13:38] VITALS: BP 93/75
== END 2017-05-12 13:52 | disposition home or self-care (01) ==
LOC: EDUNIT# → ED 10:56
DX: R52 Pain, unspecified (principal); F03.90 Unspecified dementia, unspecified severity, without behavioral disturbance, psychotic disturbance, mood disturbance, and anxiety; I11.0 Hypertensive heart disease with heart failure; I50.9 Heart failure, unspecified; E78.00 Pure hypercholesterolemia, unspecified; E11.9 Type 2 diabetes mellitus without complications; Z79.84 Long term (current) use of oral hypoglycemic drugs; Z79.82 Long term (current) use of aspirin
CPT/HCPCS: 36415; 71045; 80053; 83605; 83690; 84484; 85025; 93005; 99283; 99284

== ENCOUNTER 2017-05-31 12:50 | Outpatient (CLI) | payer MEDICARE, OTHER | END 2017-05-31 12:51 | disposition critical access hospital (66) | LOC: EMS 12:50 | PROVIDERS: ATTEND Surgery | DX: R52 Pain, unspecified (principal) | CPT/HCPCS: A0425; A0429 ==

== ENCOUNTER 2017-05-31 13:23 | Emergency (ER) | payer MEDICARE, OTHER ==
[2017-05-31] MEDS ORDERED: ACETAMINOPHEN 325 MG TABLET PO STA (14:01)
[2017-05-31 14:30] LABS: BILIRUBIN,URINE NEGATIVE (NEGATIVE); GLUCOSE, URINE (UA) NEGATIVE (NEGATIVE); KETONES,URINE (UA) NEGATIVE (NEGATIVE); LEUKOCYTE ESTERASE, URINE SMALL (NEGATIVE); NITRITE,URINE NEGATIVE (NEGATIVE); OCCULT BLOOD,URINE NEGATIVE (NEGATIVE); PROTEIN,URINE NEGATIVE (NEGATIVE); UROBILINOGEN,URINE 0.2 (NORMAL) E.U./dL (NORMAL)
[2017-05-31 14:32] LABS: CLARITY,URINE CLOUDY (CLEAR)
[2017-05-31 14:33] LABS: BASOPHILS % (AUTO) 0.8 %; EOSINOPHILS # (AUTO) 0.1 10^3/uL (0.0-0.7); EOSINOPHILS % (AUTO) 1.4 %; HGB - HEMOGLOBIN 11.5 g/dL (12.0-16.0); LYMPHOCYTES # (AUTO) 1.7 10^3/uL (1.5-3.5); LYMPHOCYTES % (AUTO) 28.6 %; MEAN CORPUSCULAR HGB CONC 33.8 g/dL (32.0-36.0); MEAN CORPUSCULAR VOLUME 82.9 fL (81.0-99.0); MEAN PLATELET VOLUME 6.4 fL (7.9-10.8); MONOCYTES # (AUTO) 0.5 10^3/uL (0.0-1.0); MONOCYTES % (AUTO) 7.8 %; NEUTROPHILS # (AUTO) 3.7 10^3/uL (1.5-6.6); NEUTROPHILS % (AUTO) 61.4 %; PLT - PLATELET COUNT 392 10^3/uL (130-450)
[2017-05-31 14:44] LABS: RBC,URINE 0-5 /HPF (0-5)
[2017-05-31 14:45] LABS: BACTERIA,URINE Moderate /HPF (None Seen); EPITHELIAL CELLS,UR RARE Transitional /HPF (<= Few); SQUAMOUS EPITHELIAL CELL,UR NONE SEEN (<= Few)
[2017-05-31 14:49] LABS: ALBUMIN 3.1 g/dL (3.2-5.5); ALBUMIN/GLOBULIN RATIO 0.8 (1.0-2.2); ALKALINE PHOSPHATASE 59 IU/L (42-121); ALT ALANINE AMINOTRANSFERASE < 10 IU/L (10-60); AST ASPARTATE AMINOTRANSFERASE 15 IU/L (10-42); BILIRUBIN,TOTAL 0.6 mg/dL (0.2-1.0); BUN - BLOOD UREA NITROGEN 16 mg/dL (6-20); CALCIUM 8.9 mg/dL (8.5-10.3); CARBON DIOXIDE - CO2 26 mmol/L (21-32); CHLORIDE 100 mmol/L (101-111); CREATININE 0.8 mg/dL (0.4-1.0); GFR - MDRD 68 (>89); GLUCOSE 95 mg/dL (70-100); LIPASE 11 U/L (22-51); SODIUM 135 mmol/L (135-145); TOTAL PROTEIN 6.8 g/dL (6.7-8.2)
--- NOTE | 2017-05-31 15:01 | XRAY Preliminary Report ---
Exam: XR CHEST 1 VIEW X-RAY IMPRESSION: No acute cardiopulmonary abnormality. [facility] SITE ID: [id number]
--- NOTE | 2017-05-31 15:01 | XRAY Report ---
EXAM: CHEST RADIOGRAPHY EXAM DATE: 05/31/2017 02:27 PM. CLINICAL HISTORY: Dyspnea/ weakness. COMPARISON: 05/12/2017. TECHNIQUE: 1 view. FINDINGS: Lungs/Pleura: No definite interval change. No new airspace opacity. Both diaphragm contours are visib le. The patient's face overlies the upper chest. No visible pneumothorax. Mediastinum: Heart size appears normal. Other: There is kyphosis and scoliotic curvature of the spine. IMPRESSION: No acute cardiopulmonary abnormality. [facility] Referring Provider Line: [phone] SITE ID: [id number]
[2017-05-31] MEDS: cephALEXin 250 MG CAPSULE PO STA ×2 (15:15→15:28)
--- NOTE | 2017-05-31 15:22 | ED Physician Documentation ---
PD HPI ALTERED MENTAL STATUS - Stated complaint Stated Complaint: PAIN - Chief complaint Chief Complaint: General - History obtained from History obtained from: Family, EMS - History of Present Illness Timing - onset: Today (report from EMS is that her daughter told them the patient was crying out in pain but did not say where she was hurting. History of similar in the past without obvious cause at times too. Marked dementia so does not carry on conversation.) Timing - duration: Hours Timing - details: Abrupt onset, Now resolved, Waxing and waning Quality / character: Other (seemed in pain and was yelling out that she was hurting but daughter not able to tell where.) Associated symptoms: No: Fever, Headache Basline status: Confused (marked dementia), Walker, Home Similar symptoms before: No diagnosis Review of Systems Unable to obtain: Dementia, Other (info from EMS) Constitutional: denies: Fever Throat: denies: Sore throat Respiratory: denies: Cough GI: denies: Abdominal Pain, Nausea, Vomiting Musculoskeletal: denies: Neck pain, Back pain Neurologic: denies: Focal weakness PD PAST MEDICAL HISTORY - Past Medical History Cardiovascular: Congestive heart failure, Hypertension, High cholesterol Respiratory: None Neuro: Dementia Endocrine/Autoimmune: Type 2 diabetes GI: None 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 : None HEENT: None Psych: None Musculoskeletal: None Derm: None - Present Medications Home Medications: Ambulatory Orders Medication Instructions Recorded Confirmed Alendronate [Fosamax] 70 mg PO UD 05/31/13 05/12/17 Aspirin [Aspir 81] 81 mg PO BID 05/31/13 05/31/17 Lisinopril 2.5 mg PO DAILY 05/31/13 05/31/17 Lovastatin [Altoprev] 20 mg PO DAILY 05/31/13 05/31/17 Sitagliptin Phosphate [Januvia] 50 mg PO DAILY 05/31/13 05/31/17 Vit D3/Folic Acid/B2/B6/B12 1 each PO DAILY 05/31/13 05/31/17 [Folgard Tablet] glipiZIDE ER [Glucotrol Xl] 2.5 mg PO 1200 05/31/13 05/31/17 Ascorbic Acid [Vitamin C] 500 mg PO DAILY 01/21/17 01/21/17 Metoprolol Succinate [Toprol Xl] 25 mg PO BID 01/21/17 05/31/17 Vitamin E (Dl,Tocopheryl Acet) 400 unit PO DAILY 01/21/17 05/31/17 [Vitamin E] Docusate Sodium 100 mg PO DAILY #30 capsule 05/12/17 Tramadol HCl 50 mg PO Q6H PRN #20 tablet 05/12/17 05/31/17 Cephalexin Suspension [Keflex] 400 mg PO TID #100 ml 05/31/17 - Allergies Allergies/Adverse Reactions: Allergies Allergy/AdvReac Type Severity Reaction Status Date / Time codeine Allergy Mild Anxiety Verified 05/31/17 14:03 shellfish derived Allergy Mild Anxiety Verified 05/31/17 14:03 - Social History Does the pt smoke?: No Smoking Status: Never smoker Does the pt drink ETOH?: No Does the pt have substance abuse?: No - Immunizations Immunizations are current?: Yes - POLST Patient has POLST: Yes POLST Status: Limited Interventions (DNR) PD ED PE NORMAL - Vitals Vital signs reviewed: Yes - General General: No acute distress, Well developed/nourished. No: Alert and oriented X 3 (oriented to just person. Very hard of hearing. ) - HEENT HEENT: Ears normal, Pharynx benign. No: Moist mucous membranes - Neck Neck: Supple, no meningeal sign, No adenopathy - Cardiac Cardiac: RRR, No murmur - Respiratory Respiratory: Clear bilaterally - Abdomen Abdomen: Soft, Non tender Results - Vitals Vitals: Oxygen O2 Source Room air - Labs Labs: Microbiology 05/31/17 14:05 Urine Culture - Preliminary Urine,Catheterized Laboratory Tests 05/31/17 05/31/17 05/31/17 14:05 14:27 14:27 WBC 6.0 RBC 4.10 L Hgb 11.5 L Hct 34.0 L MCV 82.9 MCH 28.0 MCHC 33.8 RDW 16.0 H Plt Count 392 MPV 6.4 L Neut # 3.7 Lymph # 1.7 [place] # 0.5 Eos # 0.1 Baso # 0.0 Absolute Nucleated RBC 0.00 Nucleated RBC % 0.1 Sodium 135 Potassium 3.6 Chloride 100 L Carbon Dioxide 26 Anion Gap 9.0 BUN 16 Creatinine 0.8 Estimated GFR (MDRD) 68 L Glucose 95 Calcium 8.9 Total Bilirubin 0.6 AST 15 ALT < 10 L Alkaline Phosphatase 59 Total Protein 6.8 Albumin 3.1 L Globulin 3.7 Albumin/Globulin Ratio 0.8 L Lipase 11 L Urine Color YELLOW Urine Clarity CLOUDY Urine pH 6.0 Ur Specific [place] 1.020 Urine Protein NEGATIVE Urine Glucose (UA) NEGATIVE Urine Ketones NEGATIVE Urine Occult Blood NEGATIVE Urine Nitrite NEGATIVE Urine Bilirubin NEGATIVE Urine Urobilinogen 0.2 (NORMAL) Ur Leukocyte Esterase SMALL H Urine RBC 0-5 Urine WBC 11-25 H Ur Epithelial Cells RARE Transitional Ur Squamous Epith Cells NONE SEEN Urine Bacteria Moderate H Ur Microscopic Review INDICATED Urine Culture Comments INDICATED PD MEDICAL DECISION MAKING - ED course Complexity details: considered differential (severe dementia and unable to tell if she is hurting. She denies it and no tenderness anywhere, so not sure of cause of her yelling in paina t home earlier. Has some mild UTI but likely chronic/recurrent and might be unrelated to current problems.), d/w patient Departure - Departure Disposition: Home, Self Care Clinical Impression: Pain, generalized UTI (urinary tract infection) Qualifiers: Urinary tract infection type: acute cystitis Hematuria presence: without hematuria Qualified Code(s): N30.00 - Acute cystitis without hematuria Condition: Stable Record reviewed to determine appropriate education?: Yes Instructions: ED UTI Cystitis Female Follow-Up: Eduarda Lynch MD [Primary Care Provider] - Prescriptions: Cephalexin Suspension [Keflex] 400 mg PO TID #100 ml Comments: [place] appears normal here. There is a mild bladder infection on testing. Her other labs look normal. Cephalexin 3 times a day as prescribed for 4 days. Use Tylenol 4 times a day as needed for general pains. Follow-up with your primary care. Discharge Date/Time: 05/31/17 17:43
[2017-05-31] MEDS ORDERED: CEPHALEXIN 125 MG/5 ML SYRINGE PO STA (15:51)
[2017-05-31] MEDS ORDERED: LIDOCAINE 1% 2 ML VIAL SUBQ ONE (16:09)
[2017-05-31] MEDS ORDERED: cefTRIAXone 500 MG VIAL IM STA (16:09)
[2017-05-31 17:43] VITALS: BP 138/82
== END 2017-05-31 17:43 | disposition home or self-care (01) ==
LOC: EDUNIT# → ED 13:23
DX: R52 Pain, unspecified (principal); N30.00 Acute cystitis without hematuria; F03.90 Unspecified dementia, unspecified severity, without behavioral disturbance, psychotic disturbance, mood disturbance, and anxiety; I11.0 Hypertensive heart disease with heart failure; I50.9 Heart failure, unspecified; E11.9 Type 2 diabetes mellitus without complications; Z79.82 Long term (current) use of aspirin
CPT/HCPCS: 36415; 51701; 71045; 80053; 81001; 83690; 85025; 87077; 87086; 87181; 93005; 96372; 99283; A9270; 81003

== ENCOUNTER 2017-08-10 15:46 | Outpatient (CLI) | payer MEDICARE, OTHER | END 2017-08-10 15:47 | disposition EMS.NT | LOC: EMS 15:46 | PROVIDERS: ATTEND Surgery | DX: Z03.89 Encounter for observation for other suspected diseases and conditions ruled out (principal) ==

== ENCOUNTER 2017-08-25 15:06 | Outpatient (CLI) | payer MEDICARE, OTHER | END 2017-08-25 15:07 | disposition critical access hospital (66) | LOC: EMS 15:06 | PROVIDERS: ATTEND Surgery | DX: R10.9 Unspecified abdominal pain (principal); R11.2 Nausea with vomiting, unspecified | CPT/HCPCS: A0425; A0427 ==

== ENCOUNTER 2017-08-25 15:26 | Emergency (ER) | payer MEDICARE, OTHER ==
--- NOTE | 2017-08-25 15:53 | ED Physician Documentation ---
History of Present Illness - Stated complaint Stated Complaint: ABD PX - Chief complaint Chief Complaint: Abd Pain - History obtained from History obtained from: Patient, EMS - History of Present Illness Timing: Today Pain level max: 0 Pain level now: 0 - Additonal information Additional information: Patient is an 87-year-old female who was brought to the emergency department for reported abdominal pain earlier today. She is demented and unable to communicate verbally. Does not appear in any distress currently. Family did not come with the patient. 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 : None HEENT: None Psych: None Musculoskeletal: None Derm: None - Present Medications Home Medications: Ambulatory Orders Medication Instructions Recorded Confirmed Alendronate [Fosamax] 70 mg PO UD 05/31/13 05/12/17 Aspirin [Aspir 81] 81 mg PO BID 05/31/13 05/31/17 Lisinopril 2.5 mg PO DAILY 05/31/13 05/31/17 Lovastatin [Altoprev] 20 mg PO DAILY 05/31/13 05/31/17 Sitagliptin Phosphate [Januvia] 50 mg PO DAILY 05/31/13 05/31/17 Vit D3/Folic Acid/B2/B6/B12 1 each PO DAILY 05/31/13 05/31/17 [Folgard Tablet] glipiZIDE ER [Glucotrol Xl] 2.5 mg PO 1200 05/31/13 05/31/17 Ascorbic Acid [Vitamin C] 500 mg PO DAILY 01/21/17 01/21/17 Metoprolol Succinate [Toprol Xl] 25 mg PO BID 01/21/17 05/31/17 Vitamin E (Dl,Tocopheryl Acet) 400 unit PO DAILY 01/21/17 05/31/17 [Vitamin E] Docusate Sodium 100 mg PO DAILY #30 capsule 05/12/17 Tramadol HCl 50 mg PO Q6H PRN #20 tablet 05/12/17 05/31/17 Cephalexin Suspension [Keflex] 400 mg PO TID #100 ml 05/31/17 Cephalexin [Keflex] 500 mg PO Q6H #28 capsule 08/25/17 - Allergies Allergies/Adverse Reactions: Allergies Allergy/AdvReac Type Severity Reaction Status Date / Time codeine Allergy Mild Anxiety Verified 05/31/17 14:03 shellfish derived Allergy Mild Anxiety Verified 05/31/17 14:03 - Social History Does the pt smoke?: No Smoking Status: Never smoker Does the pt drink ETOH?: No Does the pt have substance abuse?: No - Immunizations Immunizations are current?: Yes - POLST Patient has POLST: Yes POLST Status: Limited Interventions (DNR) PD ED PE NORMAL - Vitals Vital signs reviewed: Yes - General General: No acute distress, Well developed/nourished, Other (alert, pleasant) - HEENT HEENT: PERRL, Moist mucous membranes - Neck Neck: Supple, no meningeal sign - Cardiac Cardiac: RRR, Strong equal pulses - Respiratory Respiratory: No respiratory distress, Clear bilaterally - Abdomen Abdomen: Normal bowel sounds, Soft, Non tender, Non distended, No organomegaly - Back Back: No CVA TTP, No spinal TTP - Derm Derm: Warm and dry, No rash - Extremities Extremities: No edema, No calf tenderness / cord - Neuro Neuro: Other (alert) Results - Vitals Vitals: Vital Signs - 24 hr 08/25/17 08/25/17 15:28 17:31 Temperature 36.7 C Heart Rate 74 76 Respiratory 17 16 Rate Blood Pressure 132/70 H 119/68 O2 Saturation 100 100 Oxygen O2 Source Room air - Labs Labs: Laboratory Tests 08/25/17 08/25/17 08/25/17 15:44 15:44 16:40 WBC 7.9 RBC 4.35 Hgb 12.3 Hct 37.6 MCV 86.4 MCH 28.2 MCHC 32.6 RDW 15.8 H Plt Count 380 MPV 7.0 L Neut # 5.8 Lymph # 1.6 [place] # 0.4 Eos # 0.0 Baso # 0.0 Absolute Nucleated RBC 0.01 Nucleated RBC % 0.1 Sodium 129 L Potassium 4.0 Chloride 92 L Carbon Dioxide 27 Anion Gap 10.0 BUN 13 Creatinine 0.8 Estimated GFR (MDRD) 68 L Glucose 134 H Calcium 9.3 Total Bilirubin 0.5 AST 27 ALT 15 Alkaline Phosphatase 93 Total Protein 7.2 Albumin 3.9 Globulin 3.3 Albumin/Globulin Ratio 1.2 Lipase 21 L Urine Color YELLOW Urine Clarity HAZY Urine pH 5.5 Ur Specific [place] 1.020 Urine Protein NEGATIVE Urine Glucose (UA) NEGATIVE Urine Ketones NEGATIVE Urine Occult Blood TRACE-INTA Urine Nitrite POSITIVE H Urine Bilirubin NEGATIVE Urine Urobilinogen 0.2 (NORMAL) Ur Leukocyte Esterase MODERATE H Urine RBC 0-5 Urine WBC >25 H Urine WBC Clumps PRESENT Ur Squamous Epith Cells FEW Squamous Urine Bacteria Moderate H Ur Microscopic Review INDICATED Urine Culture Comments INDICATED PD MEDICAL DECISION MAKING - ED course Complexity details: reviewed results, re-evaluated patient, considered differential, d/w patient, d/w family ED course: Patient is an 87-year-old female who presents to the emergency department with abdominal pain reportedly earlier today. She is unable to give any history herself. Appears to have a UTI. Will place on antibiotics. Given Rocephin. Abdomen remained soft, nontender nondistended on serial exam. Tolerating p.o. without difficulty here. Will have her follow-up with her doctor for further care. Family counseled regarding signs and symptoms for which I believe and urgent re-evaluation would be necessary. Patient with good understanding of and agreement to plan and is comfortable going home at this time This document was made in part using voice recognition software. While efforts are made to proofread this document, sound alike and grammatical errors may occur. Departure - Departure Disposition: Home, Self Care Clinical Impression: UTI (urinary tract infection) Qualifiers: Urinary tract infection type: acute cystitis Hematuria presence: without hematuria Qualified Code(s): N30.00 - Acute cystitis without hematuria Condition: Good Instructions: ED UTI Cystitis Female Follow-Up: your,doctor in 1 week [Other] Prescriptions: Cephalexin [Keflex] 500 mg PO Q6H #28 capsule Comments: Take all antibiotics until gone. Return if Katy worsens Discharge Date/Time: 08/25/17 18:20
[2017-08-25 16:08] LABS: BASOPHILS % (AUTO) 0.6 %; EOSINOPHILS % (AUTO) 0.5 %; HGB - HEMOGLOBIN 12.3 g/dL (12.0-16.0); LYMPHOCYTES # (AUTO) 1.6 10^3/uL (1.5-3.5); LYMPHOCYTES % (AUTO) 20.2 %; MEAN CORPUSCULAR HEMOGLOBIN 28.2 pg (27.0-31.0); MEAN CORPUSCULAR HGB CONC 32.6 g/dL (32.0-36.0); MEAN CORPUSCULAR VOLUME 86.4 fL (81.0-99.0); MONOCYTES # (AUTO) 0.4 10^3/uL (0.0-1.0); NEUTROPHILS # (AUTO) 5.8 10^3/uL (1.5-6.6); NEUTROPHILS % (AUTO) 73.7 %; PLT - PLATELET COUNT 380 10^3/uL (130-450); RED BLOOD COUNT 4.35 10^6/uL (4.20-5.40); RED CELL DISTRIBUTION WIDTH 15.8 % (12.0-15.0); WHITE BLOOD COUNT 7.9 x10^3/uL (4.8-10.8)
[2017-08-25 16:19] LABS: ALBUMIN 3.9 g/dL (3.2-5.5); ALBUMIN/GLOBULIN RATIO 1.2 (1.0-2.2); BILIRUBIN,TOTAL 0.5 mg/dL (0.2-1.0); CALCIUM 9.3 mg/dL (8.5-10.3); CREATININE 0.8 mg/dL (0.4-1.0); TOTAL PROTEIN 7.2 g/dL (6.7-8.2)
[2017-08-25 16:51] LABS: BILIRUBIN,URINE NEGATIVE (NEGATIVE); GLUCOSE, URINE (UA) NEGATIVE (NEGATIVE); KETONES,URINE (UA) NEGATIVE (NEGATIVE); LEUKOCYTE ESTERASE, URINE MODERATE (NEGATIVE); NITRITE,URINE POSITIVE (NEGATIVE); OCCULT BLOOD,URINE TRACE-INTA (NEGATIVE); PH,URINE 5.5 PH (5.0-7.5); PROTEIN,URINE NEGATIVE (NEGATIVE); UROBILINOGEN,URINE 0.2 (NORMAL) E.U./dL (NORMAL)
[2017-08-25 16:52] LABS: CLARITY,URINE HAZY (CLEAR)
[2017-08-25] MEDS ORDERED: LIDOCAINE 1% 2 ML VIAL SUBQ ONE (16:55)
[2017-08-25] MEDS ORDERED: cefTRIAXone 1 GM VIAL IM STA (16:55)
[2017-08-25 17:03] LABS: BACTERIA,URINE Moderate /HPF (None Seen); RBC,URINE 0-5 /HPF (0-5); SQUAMOUS EPITHELIAL CELL,UR FEW Squamous (<= Few); WBC CLUMPS,URINE PRESENT
[2017-08-25] MEDS ORDERED: cefTRIAXone 1 GM VIAL IVP STA (17:07)
[2017-08-25 17:31] VITALS: BP 119/68
--- NOTE | 2017-08-28 08:06 | ED Physician Documentation ---
ED Addendum - Addendum Addendum: 08/28/17 08:04 Chart accessed for culture review. Urine culture grew ESBL E. coli which is resistant to ceftriaxone, cefazolin. It is bactrim sensitive and thus my recommendation is discontinue keflex and start Bactrim DS PO BID x 1 week
== END 2017-08-25 18:20 | disposition home or self-care (01) ==
LOC: EDUNIT# → ED 15:26
DX: N30.00 Acute cystitis without hematuria (principal); I11.0 Hypertensive heart disease with heart failure; I50.9 Heart failure, unspecified; E78.00 Pure hypercholesterolemia, unspecified; F03.90 Unspecified dementia, unspecified severity, without behavioral disturbance, psychotic disturbance, mood disturbance, and anxiety; E11.9 Type 2 diabetes mellitus without complications; Z79.82 Long term (current) use of aspirin
CPT/HCPCS: 36415; 51701; 80053; 81001; 81003; 83690; 85025; 87077; 87086; 96374; 99283

== ENCOUNTER 2018-05-20 16:25 | Outpatient (CLI) | payer MEDICARE, OTHER | END 2018-05-20 16:26 | disposition critical access hospital (66) | LOC: EMS 16:25 | PROVIDERS: ATTEND Surgery | DX: R10.31 Right lower quadrant pain (principal) | CPT/HCPCS: A0425; A0429 ==

== ENCOUNTER 2018-05-20 17:11 | Emergency (ER) | payer MEDICARE, OTHER ==
--- NOTE | 2018-05-20 17:35 | ED Physician Documentation ---
PD HPI ABD PAIN - Stated complaint Stated Complaint: GROIN PX - Chief complaint Chief Complaint: Abd Pain - History obtained from History obtained from: EMS - History of Present Illness Timing - onset: Today (Is an 87-year-old woman who is bedridden with severe dementia. She is cared for at home by her daughters. I guess today a different daughter was caring for her than usually cared for her. She was brought in by ambulance because the daughter who was caring for her thought she had right- sided groin pain. 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 : None HEENT: None Psych: None Musculoskeletal: None Derm: None - Present Medications Home Medications: Ambulatory Orders Medication Instructions Recorded Confirmed Lisinopril 2.5 mg PO DAILY 05/31/13 05/31/17 glipiZIDE ER [Glucotrol Xl] 2.5 mg PO 1200 05/31/13 05/31/17 Metoprolol Succinate [Toprol Xl] 25 mg PO BID 01/21/17 05/31/17 Tramadol HCl 50 mg PO Q6H PRN #20 tablet 05/12/17 05/31/17 Levofloxacin [Levaquin] 500 mg PO DAILY #7 tablet 05/20/18 Quetiapine Fumarate 25 mg PO DAILY 05/20/18 05/20/18 Temazepam 05/20/18 - Allergies Allergies/Adverse Reactions: Allergies Allergy/AdvReac Type Severity Reaction Status Date / Time codeine Allergy Mild Anxiety Verified 05/20/18 17:28 shellfish derived Allergy Mild Anxiety Verified 05/20/18 17:28 - Social History Does the pt smoke?: No Smoking Status: Never smoker Does the pt drink ETOH?: No Does the pt have substance abuse?: No - Immunizations Immunizations are current?: Yes - POLST Patient has POLST: Yes POLST Status: Limited Interventions (DNR) PD ED PE NORMAL - Vitals Vital signs reviewed: Yes - General General: Other (She is nonverbal, moaning) - HEENT HEENT: PERRL, EOMI - Neck Neck: Supple, no meningeal sign, No bony TTP - Cardiac Cardiac: RRR, No murmur - Respiratory Respiratory: No respiratory distress, Clear bilaterally - Abdomen Abdomen: Other (She is incontinent of loose stool, very tender in the low abdomen. No specific groin swelling or tenderness. She does not wince when I range the hips.) - Extremities Extremities: No edema - Neuro Eye Opening: Spontaneous Motor: Localizes to Pain Verbal: Incomprehensible GCS Score: 11 Results - Vitals Vitals: Vital Signs - 24 hr 05/20/18 05/20/18 05/20/18 17:20 17:30 18:29 Temperature 35.9 C L 36.0 C L Heart Rate 55 L 58 L 68 Respiratory 20 16 16 Rate Blood Pressure 96/39 L 116/45 L 104/67 O2 Saturation 98 100 99 05/20/18 20:00 Temperature Heart Rate 84 Respiratory 19 Rate Blood Pressure 117/81 H O2 Saturation 96 Oxygen O2 Source Room air - Labs Labs: Laboratory Tests 05/20/18 05/20/18 05/20/18 18:00 18:00 18:17 WBC 11.5 H RBC 4.13 L Hgb 12.2 Hct 37.6 MCV 91.0 MCH 29.5 MCHC 32.4 RDW 16.2 H Plt Count 327 MPV 7.5 L Neut # (Auto) 9.6 H Lymph # (Auto) 1.2 L [place] # (Auto) 0.6 Eos # (Auto) 0.1 Baso # (Auto) 0.1 Absolute Nucleated RBC 0.01 Nucleated RBC % 0.0 Sodium 134 L Potassium 4.2 Chloride 97 L Carbon Dioxide 28 Anion Gap 9.0 BUN 22 H Creatinine 0.8 Estimated GFR (MDRD) 68 L Glucose 157 H Lactic Acid 1.4 Calcium 9.4 Total Bilirubin 0.5 AST 31 ALT 18 Alkaline Phosphatase 219 H Total Protein 6.6 L Albumin 3.5 Globulin 3.1 Albumin/Globulin Ratio 1.1 Lipase 31 Urine Color Urine Clarity Urine pH Ur Specific [place] Urine Protein Urine Glucose (UA) Urine Ketones Urine Occult Blood Urine Nitrite Urine Bilirubin Urine Urobilinogen Ur Leukocyte Esterase Urine RBC Urine WBC Urine WBC Clumps Ur Squamous Epith Cells Urine Bacteria Ur Microscopic Review Urine Culture Comments 05/20/18 18:25 WBC RBC Hgb Hct MCV MCH MCHC RDW Plt Count MPV Neut # (Auto) Lymph # (Auto) [place] # (Auto) Eos # (Auto) Baso # (Auto) Absolute Nucleated RBC Nucleated RBC % Sodium Potassium Chloride Carbon Dioxide Anion Gap BUN Creatinine Estimated GFR (MDRD) Glucose Lactic Acid Calcium Total Bilirubin AST ALT Alkaline Phosphatase Total Protein Albumin Globulin Albumin/Globulin Ratio Lipase Urine Color YELLOW Urine Clarity HAZY Urine pH 5.5 Ur Specific [place] 1.020 Urine Protein NEGATIVE Urine Glucose (UA) NEGATIVE Urine Ketones NEGATIVE Urine Occult Blood TRACE-LYSE Urine Nitrite NEGATIVE Urine Bilirubin NEGATIVE Urine Urobilinogen 0.2 (NORMAL) Ur Leukocyte Esterase MODERATE H Urine RBC 0-5 Urine WBC >25 H Urine WBC Clumps PRESENT Ur Squamous Epith Cells NONE SEEN Urine Bacteria Many H Ur Microscopic Review INDICATED Urine Culture Comments INDICATED - Rads (name of study) CT A/P Radiology: EMP read contemporaneously (Diverticulosis with colitis without Other complication. Horseshoe kidney with nephrolithiasis, urinary bladder distention.) PD MEDICAL DECISION MAKING - ED course ED course: This is an 87-year-old woman with profound dementia who presents from home with groin or abdominal pain. Workup demonstrating colitis and a UTI which is treated with levofloxacin. No risk factors for C. difficile. Departure - Departure Disposition: Home, Self Care Clinical Impression: Colitis Urinary tract infection Qualifiers: Urinary tract infection type: site unspecified Hematuria presence: without hematuria Qualified Code(s): N39.0 - Urinary tract infection, site not specified Condition: Good Record reviewed to determine appropriate education?: Yes Instructions: ED UTI Cystitis Female Prescriptions: Levofloxacin [Levaquin] 500 mg PO DAILY #7 tablet Comments: Call your doctor to arrange a follow-up appointment, make the next available appointment. In the interim, return anytime if worse or if new symptoms develop. We will culture your urine, the results should be done in 48-72 hours. If an antibiotic change is necessary we will call you. Return if worse in the meantime, especially if you develop increasing flank pain, fevers, or cannot keep down the medication.
[2018-05-20] MEDS ORDERED: IOVERSOL 320 100 ML VIAL IVP ONE ×2 (17:47→19:49)
[2018-05-20 18:14] LABS: BASOPHILS # (AUTO) 0.1 10^3/uL (0.0-0.1); BASOPHILS % (AUTO) 0.8 %; EOSINOPHILS # (AUTO) 0.1 10^3/uL (0.0-0.7); EOSINOPHILS % (AUTO) 0.5 %; HGB - HEMOGLOBIN 12.2 g/dL (12.0-16.0); LYMPHOCYTES # (AUTO) 1.2 10^3/uL (1.5-3.5); LYMPHOCYTES % (AUTO) 10.4 %; MEAN CORPUSCULAR HEMOGLOBIN 29.5 pg (27.0-31.0); MEAN CORPUSCULAR HGB CONC 32.4 g/dL (32.0-36.0); MEAN PLATELET VOLUME 7.5 fL (7.9-10.8); MONOCYTES # (AUTO) 0.6 10^3/uL (0.0-1.0); MONOCYTES % (AUTO) 5.1 %; NEUTROPHILS # (AUTO) 9.6 10^3/uL (1.5-6.6); NEUTROPHILS % (AUTO) 83.2 %; PLT - PLATELET COUNT 327 10^3/uL (130-450); RED BLOOD COUNT 4.13 10^6/uL (4.20-5.40); RED CELL DISTRIBUTION WIDTH 16.2 % (12.0-15.0); WHITE BLOOD COUNT 11.5 x10^3/uL (4.8-10.8)
[2018-05-20 18:36] LABS: BILIRUBIN,URINE NEGATIVE (NEGATIVE); GLUCOSE, URINE (UA) NEGATIVE (NEGATIVE); KETONES,URINE (UA) NEGATIVE (NEGATIVE); LEUKOCYTE ESTERASE, URINE MODERATE (NEGATIVE); NITRITE,URINE NEGATIVE (NEGATIVE); OCCULT BLOOD,URINE TRACE-LYSE (NEGATIVE); PH,URINE 5.5 PH (5.0-7.5); PROTEIN,URINE NEGATIVE (NEGATIVE); UROBILINOGEN,URINE 0.2 (NORMAL) E.U./dL (NORMAL)
[2018-05-20 18:43] LABS: CLARITY,URINE HAZY (CLEAR); WBC CLUMPS,URINE PRESENT
[2018-05-20 18:44] LABS: BACTERIA,URINE Many /HPF (None Seen); RBC,URINE 0-5 /HPF (0-5); SQUAMOUS EPITHELIAL CELL,UR NONE SEEN (<= Few)
[2018-05-20 19:00] LABS: ALBUMIN 3.5 g/dL (3.2-5.5); ALBUMIN/GLOBULIN RATIO 1.1 (1.0-2.2); BILIRUBIN,TOTAL 0.5 mg/dL (0.2-1.0); CALCIUM 9.4 mg/dL (8.5-10.3); CREATININE 0.8 mg/dL (0.4-1.0); TOTAL PROTEIN 6.6 g/dL (6.7-8.2)
[2018-05-20 20:10] VITALS: BP 117/81
--- NOTE | 2018-05-20 20:26 | CT Report ---
Reason: IV only, low abd TTP Procedure Date: 05/20/2018 Accession Number: [id number] / [id number] Procedure: CT - Abdomen/Pelvis W/ CPT Code: FULL RESULT: EXAM: CT ABDOMEN AND PELVIS EXAM DATE: 05/20/2018 07:20 PM. CLINICAL HISTORY: Abdominal pain COMPARISONS: ABDOMEN/PELVIS W/ 01/21/2017 7:00 PM. TECHNIQUE: Routine helical CT imaging was performed through the abdomen and pelvis. IV contrast: 90 ML OPTIRAY 320. Enteric contrast: No. Reconstructions: Coronal and sagittal. In accordance with CT protocol optimization, one or more of the following dose reduction techniques were utilized for this exam: automated exposure control, adjustment of mA and/or KV based on patient size, or use of iterative reconstructive technique. FINDINGS: Lung Bases: Unremarkable. Liver: Normal. No masses. Gallbladder/Bile Ducts: The gallbladder is distended. No significant bile duct dilatation. Spleen: Normal. Pancreas: There is fatty replacement of the pancreas. No acute abnormalities are seen. Adrenal Glands: The right adrenal gland is not definitely seen. The left adrenal gland is unremarkable. Kidneys: There is horseshoe kidney. There is a small nonobstructing stone within the left moiety. There is no evidence of distal obstructing stone or hydronephrosis. Peritoneal Cavity/Bowel: Stomach and small bowel demonstrate no acute abnormalities. There is distal colon diverticulosis. There is wall thickening involving left and sigmoid colon. There is some mild fat stranding adjacent to the low left colon. There is no evidence of intraperitoneal free air. No enlarged mesenteric or retroperitoneal lymph nodes. No evidence of appendicitis. Pelvic Organs: The urinary bladder is distended. No clearly acute pelvic organ abnormalities are seen. Vasculature: There are atheromatous calcifications of the aorta and branch vessels. No clearly acute arterial abnormalities are seen. Bones: No acute bony abnormalities. There is right hip degenerative disease. Other: None. IMPRESSION: 1. There is distal colon diverticulosis. There is wall thickening involving left and sigmoid colon. There is some fat stranding adjacent to the low left colon (for example image 14 series 5). The diffuse wall thickening is more suggestive of colitis than diverticulitis. There is no evidence of perforation or pericolonic abscess. 2. No evidence of bowel obstruction. 3. 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 There is left moiety nephrolithiasis without evidence of distal obstructing stone. 4. The urinary bladder is distended. 5. There are atheromatous calcifications of the aorta and branch vessels. RADIA
[2018-05-20] MEDS ORDERED: levoFLOXacin 500 MG/100 ML 500 MG/100 ML BAG IV STA (20:29)
[2018-05-20] MEDS ORDERED: levoFLOXacin 250 MG TABLET PO STA (20:46)
== END 2018-05-20 21:12 | disposition home or self-care (01) ==
LOC: EDUNIT# → ED 17:11
DX: K52.9 Noninfective gastroenteritis and colitis, unspecified (principal); N39.0 Urinary tract infection, site not specified; F03.90 Unspecified dementia, unspecified severity, without behavioral disturbance, psychotic disturbance, mood disturbance, and anxiety; Z74.01 Bed confinement status; E78.00 Pure hypercholesterolemia, unspecified; E11.9 Type 2 diabetes mellitus without complications; I11.0 Hypertensive heart disease with heart failure; I50.9 Heart failure, unspecified
CPT/HCPCS: 36415; 74177; 80053; 81001; 83605; 83690; 85025; 87086; 99284; A9270; Q9967; 81003; 87077; 87181